=== PATIENT | female | born 1930 | race Caucasian/White ===

== ENCOUNTER 2017-05-03 14:50 | Emergency (ER) | payer MEDICARE, BC ==
[2017-05-03] MEDS ORDERED: Lidocaine 1% (PF) 30 ML VIAL ONE (15:33)
[2017-05-03] MEDS ORDERED: Adacel (T-DAP) 0.5 ML VIAL ONE (15:33)
[2017-05-03] MEDS ORDERED: HYDROcodone/Acetaminophen 10/325 mg Tablet ONE (15:33)
== END 2017-05-03 18:00 | disposition home or self-care (01) ==
LOC: ERS 14:50
DX: S81.811A Laceration without foreign body, right lower leg, initial encounter (principal); I10 Essential (primary) hypertension; W01.0XXA Fall on same level from slipping, tripping and stumbling without subsequent striking against object, initial encounter
CPT/HCPCS: 90471; 90715; J2001

== ENCOUNTER 2017-09-22 19:54 | Inpatient (IN) | payer MEDICARE, BC ==
--- NOTE | 2017-09-22 20:32 | RAD ---
FRONTAL VIEW CHEST 09/22/17 INDICATION: Emergency exam, pain, CHF. FINDINGS: Comparison made to 08/27/10. FINDINGS: The cardiac silhouette is enlarged. There is prominence of pulmonary vasculature. Evidence of prior s ternotomy. Vascular calcification and osseous degenerative changes present. There is slight patchy de nsity at each lung base with a pleural based appearance at the inferior right chest. IMPRESSION: 1. Findings indicate CHF. 2. Pleural based density at the inferior right hemithorax could relate to pleural based irregula rity or minimal pleural fluid. POS: [facility]
[2017-09-22 20:35] LABS: #Eosinphils 0.5 thou/uL (0.0-0.7); #Lymphocytes 1.1 thou/uL (1.20-3.40); #Monocytes 0.8 thou/uL (0.11-0.59); #Neutrophils 3.3 thou/uL (1.40-6.50); %Basophils 0.2 % (0.0-1.0); %Eosinophils 8.4 % (0.0-10.0); %Lymphocytes 19.3 % (21.0-51.0); %Monocytes 14.6 % (0.0-10.0); %Neutrophils 57.6 % (42.0-75.0); Hemoglobin 8.6 g/dL (12.0-16.0); Mean Corpuscular HGB CONC 32.1 g/dL (32.0-36.0); Mean Corpuscular Hemoglobin 27.6 pg (27.0-31.0); Mean Corpuscular Volume 85.9 fl (81.0-99.0); Mean Platelet Volume 8.5 fL (7.4-10.4); Platelet Count 259 thou/uL (130-400); RBC Distribution Width 18.8 % (11.5-14.5); Red Blood Cell (RBC) Count 3.12 mill/uL (4.20-5.40); White Blood Cell (WBC) Count 5.8 thou/uL (4.8-10.8)
[2017-09-22 20:46] LABS: PTT 39.8 SEC (22.9-36.1); Prothrombin Time 13.6 SEC (12.0-14.7)
[2017-09-22 20:59] LABS: ALT (SGPT) 14 U/L (8-55); AST (SGOT) 16 U/L (5-34); Albumin 3.5 g/dL (3.4-4.8); Alkaline Phosphatase 124 U/L (40-150); Anion Gap 11 mmol/L (10-20); BUN (Urea Nitrogen) 25 mg/dL (9.8-20.1); Bilirubin, Total 0.6 mg/dL (0.2-1.2); CK (CPK) 9 U/L (29-168); Calc. Creatinine Clearance 0 mL/min (70-130); Calcium 9.7 mg/dL (7.8-10.44); Carbon Dioxide 24 mmol/L (23-31); Chloride 106 mmol/L (98-107); Estimated GFR-MDRD 37; Globulin 3.3 g/dL (2.4-3.5); Glucose 96 mg/dL (83-110); Protein, Total 6.8 g/dL (6.0-8.3); Sodium 137 mmol/L (136-145)
[2017-09-22 21:00] LABS: CKMB 0.7 ng/mL (0-6.6); Troponin I 0.017 ng/mL (< 0.028)
[2017-09-22 22:13] LABS: Bilirubin Negative (Negative); Blood, Urine Negative (Negative); Clarity CLEAR (Clear); Glucose, Urine (Dipstick) Negative (Negative); Leukocyte Trace (Negative); Nitrite Positive (Negative); Protein, Urine (Dipstick) Negative (Neg-Trace); Specific Gravity, Urine 1.013 (1.002-1.036); Urobilinogen 0.2 mg/dL (0.2-1.0)
[2017-09-22 22:16] LABS: Bacteria/HPF 4+ HPF (None Seen); Hyaline Casts/LPF 0-3 HYALINE CAST LPF (0-3 Hyaline); RBC/HPF 0-3 HPF (0-3); Squamous Epithelial 0-3 HPF (0-3)
[2017-09-22] MEDS ORDERED: Furosemide 40 MG/4 ML VIAL ONE (22:58)
[2017-09-22] MEDS ORDERED: Ondansetron ODT 4 MG TAB SL PRN (23:46)
[2017-09-22] MEDS ORDERED: Ondansetron HCl/PF 4 MG/2 ML Vial IVP PRN (23:46)
[2017-09-23 01:00] LABS: Troponin I 0.016 ng/mL (< 0.028)
[2017-09-23 02:24] VITALS: BMI 29.9
[2017-09-23 04:46] LABS: Troponin I 0.012 ng/mL (< 0.028)
[2017-09-23] MEDS ORDERED: Acetaminophen 650 MG Suppository PR PRN ×2 (08:45→15:55)
[2017-09-23] MEDS ORDERED: Bisacodyl 5 MG TAB PO PRN ×2 (08:45→15:55)
[2017-09-23] MEDS ORDERED: Acetaminophen 325 MG TAB PO PRN ×2 (08:45→15:55)
[2017-09-23] MEDS ORDERED: Non-Formulary Item 1 EACH (Albuterol Sulfate Hfa (Or) 2 PUFF) INH PRN (08:47)
[2017-09-23] MEDS ORDERED: Benzonatate 100 MG CAP PO PRN ×2 (08:47→15:56)
[2017-09-23] MEDS ORDERED: PROVENTIL INHALER 6.7 G (200 INHALATIONS) INH PRN ×2 (08:59→15:59)
[2017-09-23] MEDS ORDERED: Aspirin 325 MG TAB PO SCH (09:00)
[2017-09-23] MEDS ORDERED: Spiriva 18 MCG CAP (Box of 5 Caps) INH SCH (09:00)
[2017-09-23] MEDS ORDERED: Potassium Chloride 20 MEQ TAB PO SCH (09:00)
[2017-09-23] MEDS ORDERED: Nitrofurantoin Monohyd/M-Cryst 100 MG CAP PO SCH (09:00)
[2017-09-23] MEDS ORDERED: Dronedarone HCl 400 MG TAB PO SCH (09:00)
[2017-09-23] MEDS ORDERED: Non-Formulary Item 1 EACH (Cholecalciferol (Vitamin D3) [Vitamin D3] 2,000 UNIT) PO SCH (09:00)
[2017-09-23] MEDS ORDERED: Furosemide 40 MG TAB PO SCH (09:00)
[2017-09-23] MEDS ORDERED: Azelastine 137 MCG/Spray 30 ML NS SCH ×2 (09:00)
[2017-09-23] MEDS ORDERED: Aspirin 81 mg Enteric Coated Tablet PO SCH (09:00)
[2017-09-23] MEDS ORDERED: Levothyroxine Sodium 25 MCG TAB PO SCH (09:00)
[2017-09-23] MEDS ORDERED: Ipratropium Bromide 2.5 ml Neb NEB PRN ×2 (09:03→15:59)
[2017-09-23] MEDS ORDERED: Furosemide 40 MG/4 ML VIAL SLOW IVP SCH ×2 (09:30→14:00)
[2017-09-23] MEDS: Heparin 5,000 UNITS/ML VIAL SC SCH ×3 (09:41→20:42)
--- NOTE | 2017-09-23 14:00 | HP ---
PRIMARY CARE PHYSICIAN: Zachariah Lemus M.D. CHIEF COMPLAINT: Shortness of breath. HISTORY OF PRESENT ILLNESS: Ms. Leal is a pleasant 87-year-old lady who was seen [facility] on 09/23/2017. Most of her care is at [facility]. She presented at this facility today because she wa s transferred from [facility] where she was being managed for a stroke from 08/2017. She reports that over the last 3 or 4 days, she has had bilateral leg swelling. She reports that it worsened over the last couple of days. She also reports that she has orthopnea. She reports shortne ss of breath over the last 2 days. In the past, she was on Lasix 40 mg daily. The dose was decrease d to 20 mg daily about 4-5 days ago because her blood pressures were running low. She denies any chest pain. She denies any cough, fever, or chills. She denies any nausea or vomitin g. REVIEW OF SYSTEMS: The following complete review of systems was negative, unless otherwise mentioned in the HPI or below: Constitutional: Weight loss or gain, ability to conduct usual activities. Sk in: Rash, itching. Eyes: Double vision, pain. ENT/Mouth: Nose bleeding, neck stiffness, pain, te nderness. Cardiovascular: Palpitations, dyspnea on exertion, orthopnea. Respiratory: Shortness of breath, wheezing, cough, hemoptysis, fever or night sweats. Gastrointestinal: Poor appetite, abdom inal pain, heartburn, nausea, vomiting, constipation, or diarrhea. Genitourinary: Urgency, frequenc y, dysuria, nocturia. Musculoskeletal: Pain, swelling. Neurologic/Psychiatric: Anxiety, depressio n. Allergy/Immunologic: Skin rash, bleeding tendency. PAST MEDICAL HISTORY: Significant for non-rheumatic aortic valve stenosis, coronary artery disease, paroxysmal atrial fibrillation, hypertension, hypothyroidism, chronic kidney disease, osteoporosis, a sthma, bunion, chronic diastolic heart failure, colon cancer, dyslipidemia, hypertension, hypothyroid ism, monoclonal gammopathy of undetermined significance, osteoarthritis, and osteoporosis. PAST SURGICAL HISTORY: Significant for resection for colon cancer, coronary artery bypass graft, hys terectomy and cardiac catheterization. FAMILY HISTORY: She reports that her father of heart disease. She also has three sisters who n eeded open heart surgery, one of whom during the surgery. CODE STATUS: I discussed her code status. She is DNR. SOCIAL HISTORY: The patient denies tobacco use, alcohol use or recreational drug use. ALLERGIES: PENICILLIN, AMOXICILLIN, CLAVULANIC ACID, GATIFLOXACIN, SULFAMETHOXAZOLE and TRIMETHOPRIM . CURRENT MEDICATIONS: Include Proventil 2 puffs every 6 hours as needed, aspirin 81 mg daily, atorvas tatin 80 mg at bedtime, azelastine 2 puffs daily, benzonatate 100 mg 3 times a day, vitamin D3 2000 u nits daily, Multaq 200 mg 2 times a day, furosemide 20 mg daily, isosorbide mononitrate 30 mg 2 times a day, levothyroxine 25 mcg daily, mometasone/formoterol 2 puffs 2 times a day, montelukast 10 mg at bedtime, pantoprazole 40 mg daily, potassium chloride 20 mEq daily, and Spiriva 18 mcg inhalation da gill. PHYSICAL EXAMINATION: GENERAL: Ms. Leal is awake and alert, not in acute distress. VITAL SIGNS: She is afebrile. Pulse is 56. She is breathing at rate of 16 and saturating 95% on ro om air. Blood pressure is 132/73. EYES: No scleral icterus. No conjunctival pallor. ENT: Moist mucosal membranes, no oropharyngeal erythema or exudates. NECK: Supple, nontender, normal range of movement. Trachea is midline. She has jugular venous dist ention. RESPIRATORY: Accessory muscles of breathing are not active. Chest wall movements are symmetric bila terally. Lung examination reveals a few bibasilar crackles. CARDIOVASCULAR: S1 and S2 are heard, bradycardic and regular. LUNGS: Peripheral pulses are palpable. No carotid bruit, no pericardial rub. ABDOMEN: Soft, nontender, bowel sounds heard, no hepatomegaly, no splenomegaly. NEUROLOGIC: Cranial nerves II-XII are intact. Deep tendon reflexes are 2+. SKIN: She has bilateral lower extremity edema. She also has an open wound over the left etienne, which she reports as the site of a blister which burst recently. LYMPHATIC: No cervical lymphadenopathy. MUSCULOSKELETAL: Power is 5/5 in all 4 extremities. PSYCHIATRIC: Normal mood, normal affect, patient is oriented to person, place, and time. LABORATORY DATA: Ms. Leal's labs and investigations were reviewed. I reviewed her electrocardio gram, which shows sinus bradycardia with first-degree AV block, no ST changes to suggest an acute cor onary syndrome. I also reviewed her chest x-ray, which does not show any pulmonary infiltrates. She does have prominence of pulmonary vessels. She has a normal white count, normocytic anemia with hem oglobin 8.6, normal platelet count, INR 1.0, normal electrolytes, elevated creatinine of 1.35, last k nown creatinine of 1.37 on 09/04/2017, elevated blood urea nitrogen of 25, unremarkable liver profile , normal troponin I x3, normal lipase and elevated BNP of 828.7. Urinalysis is positive for nitrite and trace leukocyte esterase. ASSESSMENT AND PLAN: Ms. Leal is a pleasant 87-year-old lady who was seen at [facility] on 09/23/2017. Her problem list includes: 1. Shortness of breath: Most likely secondary to congestive heart failure exacerbation. She will b e admitted to the hospital for further management. 2. Congestive heart failure exacerbation: We will treat her with intravenous diuretics. We will ch margarita 2D echocardiogram to evaluate cardiac function. I will also monitor creatinine and electrolytes and she will be on intravenous diuretics. 3. Chronic kidney disease: Stable, recheck creatinine levels since she will be on intravenous diure tics. 4. Atrial fibrillation. Patient is currently in sinus bradycardia. Continue to monitor on telemetr y. 5. Urinary tract infection. Given her history of allergies, start Macrobid. Follow urine cultures. 6. Coronary artery disease. Appears to be stable. 7. History of cerebrovascular accident: Stable. Many thanks for allowing me to participate in Ms. Leal's care. Please feel free to contact me wi th any questions or concerns. LEVEL OF RISK: High. LEVEL OF COMPLEXITY: High.
[2017-09-23] MEDS ORDERED: Furosemide 40 MG/4 ML VIAL ONE (15:17)
[2017-09-23] MEDS ORDERED: Mometasone/Formoterol 120 PUFF INHALER INH SCH (18:30)
[2017-09-23] MEDS: Mometasone/Formoterol 120 PUFF INHALER INH SCH (19:23)
[2017-09-23] MEDS: Nitrofurantoin Monohyd/M-Cryst 100 MG CAP PO SCH (20:28)
[2017-09-23] MEDS: Dronedarone HCl 400 MG TAB PO SCH (20:43)
[2017-09-23] MEDS ORDERED: Montelukast Sodium 10 mg Tablet PO SCH ×2 (21:00)
[2017-09-23] MEDS ORDERED: Atorvastatin Calcium 20 MG TAB PO SCH (21:00)
[2017-09-23] MEDS ORDERED: Atorvastatin Calcium 40 MG TAB PO SCH ×2 (21:00)
[2017-09-24] MEDS: Furosemide 40 MG/4 ML VIAL SLOW IVP SCH ×2 (05:41→13:47)
[2017-09-24] MEDS ORDERED: Levothyroxine Sodium 25 MCG TAB PO SCH (06:00)
[2017-09-24 08:47] LABS: #Eosinphils 0.4 thou/uL (0.0-0.7); #Lymphocytes 0.9 thou/uL (1.20-3.40); #Monocytes 0.6 thou/uL (0.11-0.59); #Neutrophils 2.6 thou/uL (1.40-6.50); %Basophils 0.3 % (0.0-1.0); %Eosinophils 9.1 % (0.0-10.0); %Lymphocytes 19.4 % (21.0-51.0); %Neutrophils 58.1 % (42.0-75.0); Mean Corpuscular HGB CONC 31.7 g/dL (32.0-36.0); Mean Corpuscular Hemoglobin 27.3 pg (27.0-31.0); Mean Corpuscular Volume 86.1 fl (81.0-99.0); Mean Platelet Volume 8.6 fL (7.4-10.4); Platelet Count 311 thou/uL (130-400); RBC Distribution Width 18.7 % (11.5-14.5); Red Blood Cell (RBC) Count 3.64 mill/uL (4.20-5.40); White Blood Cell (WBC) Count 4.5 thou/uL (4.8-10.8)
[2017-09-24] MEDS ORDERED: Potassium Chloride 20 MEQ TAB PO SCH ×2 (09:00→10:45)
[2017-09-24] MEDS ORDERED: Aspirin 81 mg Enteric Coated Tablet PO SCH (09:00)
[2017-09-24] MEDS ORDERED: Azelastine 137 MCG/Spray 30 ML NS SCH (09:00)
[2017-09-24 09:04] LABS: Anion Gap 11 mmol/L (10-20); BUN (Urea Nitrogen) 20 mg/dL (9.8-20.1); Calc. Creatinine Clearance 42 mL/min (70-130); Carbon Dioxide 30 mmol/L (23-31); Chloride 100 mmol/L (98-107); Estimated GFR-MDRD 50; Glucose 85 mg/dL (83-110); Potassium 3.4 mmol/L (3.5-5.1); Sodium 138 mmol/L (136-145)
[2017-09-24] MEDS: Dronedarone HCl 400 MG TAB PO SCH (09:09)
[2017-09-24] MEDS: Mometasone/Formoterol 120 PUFF INHALER INH SCH (09:09)
[2017-09-24] MEDS: Heparin 5,000 UNITS/ML VIAL SC SCH ×2 (09:09→15:24)
[2017-09-24] MEDS: Nitrofurantoin Monohyd/M-Cryst 100 MG CAP PO SCH (09:11)
[2017-09-24 11:18] VITALS: TEMP 98
--- NOTE | 2017-09-24 12:33 | DIS ---
DATE OF ADMISSION: 09/23/2017 DATE OF DISCHARGE: 09/24/2017 PRIMARY CARE PHYSICIAN: Zachariah Lemus M.D. DISCHARGE DIAGNOSES: 1. Congestive heart failure exacerbation. 2. Urinary tract infection. CONDITION OF PATIENT ON THE DAY OF DISCHARGE: Stable. I assessed Ms. Leal on the day of discharge. She denies any chest pain or shortness of breath. She reports feeling better. PHYSICAL EXAMINATION: VITAL SIGNS: Stable. She is saturating well on room air. CARDIOVASCULAR: S1 and S2 are heard, regular. LUNGS: Clear to auscultation bilaterally. DISCHARGE MEDICATIONS: Her furosemide dose is increased to 40 mg daily. Otherwise, no change was made to her home medications as dictated on history and physical note from 09/23/2017. She has also been started on Macrobid 100 mg 2 times a day for 1 week. HOSPITAL COURSE: Ms. Leal is a pleasant 87-year-old lady who was admitted to [facility] on 09/23/2017 for congestive heart failure exacerbation. She also had urinalysis that was suggestive of urinary tract infection. She has been started on Macrobid. She received intravenous furosemide, with marked improvement in her shortness of breath and oxygenation. Preliminary urine cultures indicated that she is growing gram negative rods. She also had a 2D echocardiogram done during this hospitalization. Report is pending at the time of dictation. She is advised to follow up with her primary care physician for final urine culture result as well as 2D echocardiogram report. Her Lasix dose is being increased to 40 mg daily at the time of discharge. On the day of discharge, she has normal sodium, potassium 3.4, which is being replaced, creatinine 1.05, white count 4500, hemoglobin 10 and platelet count 311,000. Many thanks for allowing me to participate in your patient's care. She was admitted to this facility from assisted living at [facility] and is being discharged back to [facility]. TOTAL AMOUNT OF TIME SPENT COORDINATING THIS DISCHARGE: 38 minutes. ARUNA
[2017-09-24 16:12] VITALS: BP 120/59
--- NOTE | 2017-09-30 17:46 | EKG ---
Test Reason : Blood Pressure : / mmHG Vent. Rate : 058 BPM Atrial Rate : 058 BPM P-R Int : 210 ms QRS Dur : 096 ms QT Int : 480 ms P-R-T Axes : 057 -17 005 degrees QTc Int : 471 ms Sinus bradycardia with 1st degree A-V block Otherwise normal ECG Confirmed by NOLAN MONTELONGO, GITA ([id number]), development editor ELIZABETH SIMONS ([id number]) on 09/30/2017 5:45:55 PM Referred By: Confirmed By:GITA FRANCISCO MD
== END 2017-09-24 16:13 | DRG 291 ==
LOC: ERS 19:54 → 2NO 21:42 → UNDODISIN 09-23 13:46
PROVIDERS: ADMIT Internal Medicine Infectious Disease; ATTEND Internal Medicine Infectious Disease
DX: I13.0 Hypertensive heart and chronic kidney disease with heart failure and stage 1 through stage 4 chronic kidney disease, or unspecified chronic kidney disease (principal); I50.33 Acute on chronic diastolic (congestive) heart failure; I48.0 Paroxysmal atrial fibrillation; I35.0 Nonrheumatic aortic (valve) stenosis; D47.2 Monoclonal gammopathy; N39.0 Urinary tract infection, site not specified; N18.9 Chronic kidney disease, unspecified; R00.1 Bradycardia, unspecified; I25.10 Atherosclerotic heart disease of native coronary artery without angina pectoris; E03.9 Hypothyroidism, unspecified; M81.0 Age-related osteoporosis without current pathological fracture; E78.5 Hyperlipidemia, unspecified; Z66 Do not resuscitate; Z86.73 Personal history of transient ischemic attack (TIA), and cerebral infarction without residual deficits; Z85.038 Personal history of other malignant neoplasm of large intestine; Z88.1 Allergy status to other antibiotic agents; Z88.0 Allergy status to penicillin; Z88.2 Allergy status to sulfonamides; Z79.82 Long term (current) use of aspirin; Z79.899 Other long term (current) drug therapy; Z95.1 Presence of aortocoronary bypass graft; Z90.49 Acquired absence of other specified parts of digestive tract
CPT/HCPCS: 36415; 71045; 80048; 80053; 81003; 81015; 82553; 83690; 83880; 84484; 85025; 85610; 85730; 87077; 87086; 87186; 93005; 93306; 93798; 94664; 96374; A4216; J1644; J1940

== ENCOUNTER 2017-09-24 17:06 | Emergency (ER) | payer MEDICARE, BC | END 2017-09-24 18:00 | disposition home or self-care (01) | LOC: ERS 17:06 | DX: S81.811A Laceration without foreign body, right lower leg, initial encounter (principal); I11.0 Hypertensive heart disease with heart failure; I50.9 Heart failure, unspecified; Z79.82 Long term (current) use of aspirin; Z79.899 Other long term (current) drug therapy; W23.1XXA Caught, crushed, jammed, or pinched between stationary objects, initial encounter | CPT/HCPCS: 99283 ==

== ENCOUNTER 2017-11-06 08:49 | Outpatient (CLI) | payer MEDICARE, BC ==
--- NOTE | 2017-11-06 11:10 | HP ---
DATE OF SERVICE: 11/06/2017 HISTORY OF PRESENT ILLNESS: Ms. Nina Leal is a very pleasant 87-year- old who presents to the [facility] for evaluation of venous ulcerations of the right and left lower legs. The patient has a venous ulceration of the right lower leg as well as a venous ulceration of the left lower leg. The patient states that the venous ulceration of her right lower leg began from trauma from a car door after her discharge from [facility] on 09/24/2017 after admission for congestive heart failure exacerbation. The patient states that the ulceration of her left lower leg has been present longer than the ulceration of her right lower leg and began after trauma from her wheelchair. The patient was referred to the Wound Center by Dr. Lemus. Ms. Leal has no other complaints today. She denies any fever or chills. PAST MEDICAL HISTORY: 1. Asthma. 2. Coronary artery disease. 3. Hypertension. 4. Osteoporosis. 5. Peripheral vascular disease. 6. History of paroxysmal atrial fibrillation. 7. Hypothyroidism. 8. Osteoarthritis. 9. Anemia 10. Congestive heart failure with diastolic dysfunction. 11. History of colon carcinoma. 12. Left acute ischemic stroke. 13. Aortic stenosis. PAST SURGICAL HISTORY: 1. Coronary artery bypass grafting. 2. Laparoscopic cholecystectomy. 3. Hysterectomy. 4. Pubovaginal sling. 5. Sinus surgery. 6. Cataract surgery. 7. Right hemicolectomy. 8. Incisional herniorrhaphy with mesh. MEDICATIONS: 1. Iron. 2. Lasix. 3. Potassium. 4. Multaq. 5. Azelastine - fluticasone nasal spray. 6. Vitamin D. 7. Spiriva. 8. Protonix. 9. Aspirin 81 mg. 10. Levothyroxine. 11. Montelukast. 12. Isosorbide dinitrate. 13. Atorvastatin. 14. Dulera aerosol. 15. Albuterol inhaler. 16. ProAir inhaler. ALLERGIES: PENICILLIN and SULFA. SOCIAL HISTORY: Significant for tobacco use of up to 2 packs of cigarettes per day for 20 years. The patient states that she stopped smoking in 1988. The patient denies any history of ETOH use. FAMILY HISTORY: Significant for diabetes mellitus. The patient states that 2 sisters and a cousin were diagnosed with diabetes mellitus. Family history is also significant for coronary artery disease. The patient states that she has 3 sisters who were diagnosed with coronary artery disease. PHYSICAL EXAMINATION: VITAL SIGNS: Temperature 97.5, pulse 68, respirations 17, blood pressure 150/ 67. GENERAL: An 87-year-old female sitting on wheelchair in examination room in no acute distress. HEENT: Normocephalic, atraumatic. NECK: No nuchal rigidity. CHEST: Clear to auscultation. CARDIOVASCULAR: Regular rate and rhythm. ABDOMEN: Soft. EXTREMITIES: An ulceration is present over the right lower leg which measures approximately 0.8 x 1.0 cm. Granulation tissue is present within the wound margins. Necrotic and nonviable tissue present within the wound margins was debrided with an excisional full-thickness debridement with the use of a curette. No purulent drainage is associated with the wound. No erythema of the skin surrounding the wound is present. No maceration of the skin of the periwound is noted. A dorsalis pedis pulse is palpable on the right. No significant edema of the right foot or lower leg is appreciated on exam today. Numerous varicosities are present over the right foot and lower leg. An ulceration of the left lower leg is present which measures approximately 2.4 x 2.2 cm. Granulation tissue is present within the wound margins. Necrotic and nonviable tissue present within the wound margins was debrided with an excisional full-thickness debridement with the use of a curette. No purulent drainage is associated with the wound. No erythema of the skin surrounding the wound is present. No maceration of the skin of the periwound is noted. A dorsalis pedis pulse is palpable on the left. No significant edema of the left foot or lower leg is present on exam today. Numerous varicosities are also present over the left foot and lower leg. ASSESSMENT AND PLAN: 1. Varicose veins with ulcers. Silverlon, Webril, and the 3M Coban 2-layer compression system will be applied to each ulceration today. Orders will be transmitted to Home Health for dressing changes of Silverlon, Webril, and the 3M Coban 2-layer compression system 1-2 times per week after cleansing and irrigation. No antibiotics will be prescribed today based upon the appearance of the wounds. I will see Ms. Leal again in two weeks. 2. Asthma. 3. Coronary artery disease. 4. Hypertension. 5. Osteoporosis. 6. Peripheral vascular disease. 7. History of paroxysmal atrial fibrillation. 8. Hypothyroidism. 9. Osteoarthritis. 10. Anemia 11. Congestive heart failure with diastolic dysfunction. 12. History of colon carcinoma. 13. Left acute ischemic stroke. 14. Aortic stenosis. MTDD
[2017-11-06] MEDS ORDERED: Lidocaine 2% Jelly 5 ML TUBE ONE (19:51)
[2017-11-06] MEDS ORDERED: Sodium Chloride 0.9% 15 ML NEB ONE (19:51)
== END 2017-11-06 08:50 | disposition home or self-care (01) ==
LOC: WCC 08:49
PROVIDERS: ATTEND Family Medicine
DX: I83.018 Varicose veins of right lower extremity with ulcer other part of lower leg (principal); I83.028 Varicose veins of left lower extremity with ulcer other part of lower leg; L97.819 Non-pressure chronic ulcer of other part of right lower leg with unspecified severity; L97.829 Non-pressure chronic ulcer of other part of left lower leg with unspecified severity; J45.909 Unspecified asthma, uncomplicated; I25.10 Atherosclerotic heart disease of native coronary artery without angina pectoris; M81.0 Age-related osteoporosis without current pathological fracture; E03.9 Hypothyroidism, unspecified; I11.9 Hypertensive heart disease without heart failure; I50.9 Heart failure, unspecified; D64.9 Anemia, unspecified; I73.9 Peripheral vascular disease, unspecified; M19.90 Unspecified osteoarthritis, unspecified site; I35.0 Nonrheumatic aortic (valve) stenosis; I63.9 Cerebral infarction, unspecified; Z86.79 Personal history of other diseases of the circulatory system
CPT/HCPCS: 11042; 97139; G0463; 99203; A4218

== ENCOUNTER 2017-11-20 09:37 | Outpatient (CLI) | payer MEDICARE, BC ==
--- NOTE | 2017-11-20 11:36 | PRG ---
DATE OF SERVICE: 11/20/2017 HISTORY: Ms. Nina Leal is a very pleasant 87-year-old who presents to the Wound Center for ev aluation of venous ulcerations of the right and left lower legs. The patient has a venous ulceration of the right lower leg as well as a venous ulceration of the left lower leg. The patient previously stated that the venous ulceration of her right lower leg began from trauma from a car door after her discharge from [facility] on 09/24/2017 after admission for congestive heart failure exacerbation. The patient stated that the ulceration of her left lower leg had been present longer than the ulceration of her right lower leg and began after trauma from her wheelchair. The gm chacko was referred to the Wound Center by Dr. Lemus. After being seen in the Wound Center, the ulcerations were treated with the application of Silverlon, Webril, and 3M Coban 2 layer compression system. The patient has been receiving the preceding dressing changes with the assistance of Home [facility] on a weekly basis after cleansing and irrigation. PHYSICAL EXAMINATION: VITAL SIGNS: Temperature 97.4, pulse 74, respirations 19, blood pressure 121/56. EXTREMITIES: An ulceration is present over the right lower leg, an ulceration is also present over t he left lower leg. Necrotic and nonviable tissue present within the margins of each wound was debrid ed with an excisional full-thickness debridement with the use of a curet. No purulent drainage is as sociated with either wound. No erythema of the skin surrounding either wound is present. No macerat ion of the skin of the periwound of either wound is noted. A dorsalis pedis pulse is easily palpable on the right and on the left. No significant edema of the right or left lower extremity is present on exam today. Numerous varicosities are present over the right and left lower legs. ASSESSMENT AND PLAN: 1. Varicose veins with ulcers. Silverlon, Webril, and the 3M Coban 2-layer compression system will be applied to each ulceration today. Orders will be transmitted to Home Health for dressing changes of Silverlon, Webril, and 3M Coban 2 layer compression system 1-2 times per week after cleansing and irrigation. Once the patient receives her compression garments she is to apply the garments each mor rodo and remove the garments at night. The patient has been told that at this time the compression w raps will be discontinued. The patient understands and is in agreement with the preceding treatment plan. Ms. Leal will be discharged from clinic today with followup on a p.r.n. basis. The wounds have almost healed completely, and are healing without complications or any signs of infection. 2. Asthma. 3. Coronary artery disease. 4. Hypertension. 5. Osteoporosis. 6. Peripheral vascular disease. 7. History of paroxysmal atrial fibrillation. 8. Hypothyroidism. 9. Osteoarthritis. 10. Anemia. 11. Congestive heart failure with diastolic dysfunction. 12. History of colon carcinoma. 13. Left acute ischemic stroke. 14. Aortic stenosis.
[2017-11-20] MEDS ORDERED: Lidocaine 2% Jelly 5 ML TUBE ONE (14:55)
[2017-11-20] MEDS ORDERED: Sodium Chloride 0.9% 15 ML NEB ONE (14:55)
== END 2017-11-20 09:38 | disposition home or self-care (01) ==
LOC: WCC 09:37
PROVIDERS: ATTEND Family Medicine
DX: I83.029 Varicose veins of left lower extremity with ulcer of unspecified site (principal); L97.929 Non-pressure chronic ulcer of unspecified part of left lower leg with unspecified severity; J45.909 Unspecified asthma, uncomplicated; I25.10 Atherosclerotic heart disease of native coronary artery without angina pectoris; M81.0 Age-related osteoporosis without current pathological fracture; E03.9 Hypothyroidism, unspecified; D64.9 Anemia, unspecified; I11.0 Hypertensive heart disease with heart failure; I50.9 Heart failure, unspecified; I35.0 Nonrheumatic aortic (valve) stenosis; I48.0 Paroxysmal atrial fibrillation; I73.9 Peripheral vascular disease, unspecified; M19.90 Unspecified osteoarthritis, unspecified site; I63.9 Cerebral infarction, unspecified
CPT/HCPCS: A4218

== ENCOUNTER 2020-02-20 17:39 | Inpatient (IN) | payer MEDICARE, BC, OTHER ==
[~2020-02-20 17:39] MED LIST: Iopamidol-370 76% 500 ML 1 ML ONE
[2020-02-20] MEDS ORDERED: Fentanyl 100 MCG/2 ML VIAL ONE (18:37)
--- NOTE | 2020-02-20 18:37 | RAD ---
EXAM: CHEST ONE VIEW: 02/20/20 HISTORY: Injury from a fall. Right hip pain. COMPARISON: 09/22/17. FINDINGS: Postop midline sternotomy. Minimal cardiomegaly. Evidence for a large hiatal hernia. Diffuse bony dem ineralization. No confluent pneumonia, overt edema, or pleural effusion. No pneumothorax. IMPRESSION: 1. Minimal stable cardiomegaly with postop midline sternotomy. 2. Large hiatal hernia. 3. Bone demineralization. 4. No evidence for other acute process. POS: [facility]
[2020-02-20] MEDS ORDERED: Adacel (T-DAP) 0.5 ML SYRINGE ONE (18:38)
--- NOTE | 2020-02-20 18:41 | RAD ---
EXAM: RIGHT HAND TWO VIEWS: 02/20/20 HISTORY: Injury from a fall with deformity. Very markedly comminuted distal radial fracture with severe foreshortening and overriding with slight dorsal angulation. There is prominent soft tissue swelling. Prominent vascular calcifications. The r emainder of the hand and wrist appear intact. IMPRESSION: Very markedly comminuted distal radial fracture with intra-articular extension with considerable fore shortening and mild dorsal angulation with some resultant deformity. POS: [facility]
--- NOTE | 2020-02-20 18:46 | RAD ---
AP PELVIS: 02/20/20 HISTORY: Fall with injury to right hip. There is evidence of a displaced fracture involving the superior ramus on the right. This is not well imaged. Degenerative changes at both hips. No acute hip fracture identified. No other plaques are identified. IMPRESSION: Evidence of superior ramus fracture on the right. Consider CT scan pelvis to better evaluate the bony pelvis. POS: [facility]
--- NOTE | 2020-02-20 18:48 | RAD ---
EXAM: RIGHT HIP TWO VIEWS: 02/20/20 HISTORY: Injury and pain from a fall. Very severe bone demineralization. Displaced fractures involving the right superior pubic ramus at th e pubis and inferior ischiopubic ramus. The hip and femur appear intact. IMPRESSION: Displaced fractures of the right superior and inferior pubic rami. POS: [facility]
--- NOTE | 2020-02-20 18:49 | RAD ---
RIGHT FOREARM: 02/20/20 Two views. HISTORY: Fall. There is a displaced impacted fracture of the distal radius. Dorsal displacement of the distal fragme nt. No definite ulnar fracture identified. IMPRESSION: Impacted and displaced fracture distal radius. POS: [facility]
[2020-02-20 19:05] LABS: #Eosinphils 0.6 thou/uL (0.0-0.7); #Monocytes 0.3 thou/uL (0.11-0.59); #Neutrophils 5.5 thou/uL (1.40-6.50); %Basophils 0.5 % (0.0-1.0); %Eosinophils 8.1 % (0.0-10.0); %Lymphocytes 13.3 % (21.0-51.0); %Monocytes 3.4 % (0.0-10.0); %Neutrophils 74.7 % (42.0-75.0); Hemoglobin 10.8 g/dL (12.0-16.0); Mean Corpuscular HGB CONC 33.2 g/dL (32.0-36.0); Mean Corpuscular Volume 87.4 fL (78.0-98.0); Mean Platelet Volume 10.3 fL (7.4-10.4); Platelet Count 96 thou/uL (130-400); RBC Distribution Width 18.1 % (11.5-14.5); Red Blood Cell (RBC) Count 3.73 mill/uL (4.20-5.40); White Blood Cell (WBC) Count 7.4 thou/uL (4.8-10.8)
[2020-02-20 19:10] LABS: INR-International Normal Ratio 1.1; PTT 47.1 sec (22.9-36.1); Prothrombin Time 14.2 sec (12.0-14.7)
[2020-02-20 19:25] LABS: ALT (SGPT) 31 U/L (8-55); AST (SGOT) 39 U/L (5-34); Albumin 3.4 g/dL (3.4-4.8); Alkaline Phosphatase 161 U/L (40-110); Anion Gap 14 mmol/L (10-20); BUN (Urea Nitrogen) 29 mg/dL (9.8-20.1); Bilirubin, Total 0.7 mg/dL (0.2-1.2); Calc. Creatinine Clearance 0 mL/min (70-130); Calcium 9.6 mg/dL (7.8-10.44); Carbon Dioxide 21 mmol/L (23-31); Chloride 106 mmol/L (98-107); Estimated GFR-MDRD 53; Globulin 3.1 g/dL (2.4-3.5); Glucose 127 mg/dL (83-110); Potassium 3.7 mmol/L (3.5-5.1); Protein, Total 6.5 g/dL (6.0-8.3); Sodium 137 mmol/L (136-145)
[2020-02-20 19:46] LABS: CKMB 2.2 ng/mL (0-6.6)
[2020-02-20] MEDS ORDERED: Clindamycin/D5W 600 mg/50 ml Premix Bag ONE (20:06)
[2020-02-20] MEDS ORDERED: Ketorolac Tromethamine 30 MG/ML VIAL ONE (20:06)
[2020-02-20] MEDS ORDERED: Bacitracin 1 PK ONE (20:06)
[2020-02-20 21:01] LABS: Bilirubin Negative (Negative); Blood, Urine Negative (Negative); Clarity Clear (Clear); Glucose, Urine (Dipstick) Normal (Negative); Ketone, Urine Negative (Negative); Leukocyte Negative Leu/uL (Negative); Nitrite Negative (Negative); Protein, Urine (Dipstick) Negative (Neg-Trace); Specific Gravity, Urine 1.007 (1.002-1.036); Urobilinogen Normal mg/dL (Less than 2)
[2020-02-20] MEDS ORDERED: Morphine 2 MG/ML SYRINGE ONE (21:35)
[2020-02-20] MEDS ORDERED: Dextrose 5% in Water 1,000 ML IV PRN (21:37)
[2020-02-20] MEDS ORDERED: hydrALAZINE 20 MG/ML VIAL SLOW IVP PRN (21:37)
[2020-02-20] MEDS ORDERED: Albuterol 200 PUFF (6.7GM INHALER) INH PRN (21:37)
[2020-02-20] MEDS ORDERED: Morphine 2 MG/ML VIAL SLOW IVP PRN (21:37)
[2020-02-20] MEDS ORDERED: Dextrose 50% Abboject 50 ML SYRINGE SLOW IVP PRN (21:37)
[2020-02-20] MEDS ORDERED: Cyclobenzaprine 10 MG TAB PO PRN (21:42)
[2020-02-20] MEDS ORDERED: traMADol HCl 50 MG TAB PO PRN ×2 (21:42)
[2020-02-20] MEDS ORDERED: Sodium Chloride 0.9% 1,000 ML IV SCH (22:45)
[2020-02-20 22:48] LABS: Phosphorus 3.3 mg/dL (2.3-4.7)
[2020-02-20 22:50] LABS: Digoxin Less than 0.15 ng/mL (0.8-2.0)
[2020-02-20 22:54] LABS: Troponin I 0.028 ng/mL (< 0.028)
--- NOTE | 2020-02-20 23:03 | HP ---
TRAUMA SURGEON: Dr. Damon. CONSULTING PHYSICIAN: Dr. Campa of Orthopedic Surgery. HISTORY OF PRESENT ILLNESS: The patient is an 89-year-old female who presented to the emergency department via EMS as a level 2 trauma activation. The patient arrived hemodynamically stable and reported that she had a fall from standing by turning down her sheets on her bed. The patient is not exactly sure why she fell. It is unclear if she had a near syncopal episode. She does have a significant cardiac history. She denies chest pain or shortness of breath. She denies any recent cardiac events. She has not used her home nitroglycerin recently. She is lying in bed almost flat and is not requiring any oxygen. She denies cough or shortness of breath. The patient takes aspirin at home. She does not take any anticoagulation. She denies any loss of consciousness or hitting her head. REVIEW OF SYSTEMS: All additional 10-point review of systems negative except as indicated above. PAST MEDICAL HISTORY: Hiatal hernia, CABG, asthma, CAD, hypertension, osteoporosis, peripheral vascular disease, paroxysmal atrial fibrillation, hypothyroidism, osteoarthritis, anemia, congestive heart failure with diastolic dysfunction, colon cancer, left-sided ischemic stroke, aortic stenosis, and GERD. PAST SURGICAL HISTORY: CABG, laparoscopic cholecystectomy, hysterectomy, pubovaginal sling, sinus surgery, cataract surgery, right hemicolectomy, incisional hernia repair with mesh. SOCIAL HISTORY: The patient denies tobacco, drug, and alcohol use. She lives at [facility] in the assisted living portion. She gets around with a walker usually. MEDICATIONS: Include, 1. Dulcolax. 2. Lidocaine patches. 3. Ferrous sulfate. 4. Nitroglycerin tablets. 5. MiraLAX. 6. Dextran eye drops. 7. Tylenol. 8. Zofran. 9. Lasix 40 mg once a day. 10. Multaq. 11. She has an additional Lasix 20 mg p.r.n. 12. Digoxin. 13. Advair. 14. Potassium chloride. 15. Spiriva. 16. Protonix. 17. Aspirin. 18. Levothyroxine. 19. Azelastine-fluticasone. 20. Montelukast sodium. 21. Atorvastatin. 22. Albuterol sulfate. 23. ProAir. ALLERGIES: PENICILLIN, AUGMENTIN, CEFAZOLIN, SULFA, ANTIBIOTICS, TRIMETHOPRIM, AND GATIFLOXACIN. PHYSICAL EXAMINATION: VITAL SIGNS: Heart rate 105, respirations 21, oxygen saturation 95% on room air, blood pressure 112/62. PRIMARY SURVEY: Airway intact. Adequate breath sounds bilaterally. 2+ pulses in the bilateral radials, femorals, and DPs. GCS 15. Gross motor and sensation intact. The patient has a 5 cm avulsion laceration to the distal medial aspect of the right radius. She has bruising to her bilateral tib fibs and left upper extremity, which are of different ages. She has no signs of any active bleeding. SECONDARY SURVEY: HEAD: Normocephalic and atraumatic. No gross palpable skull deformities. EYES: Pupils, 3-2, equal, round, reactive to light bilaterally. ENT: No signs of trauma. C-SPINE: No step-offs or deformities. Nontender. C-collar not in place. CHEST: Nontender. No crepitus. No abrasions or ecchymosis noted. Equal chest movement. ABDOMEN: Soft, nontender, nondistended. PELVIS: Stable to palpation, but tenderness. RECTAL: Deferred. GENITOURINARY: Deferred. EXTREMITIES: No gross traumatic deformities. No abrasions noted. She has ecchymoses on her bilateral tib fibs of different ages. 2+ pulses in bilateral radials, femorals, and DPs. BACK/SPINE: No step-offs or deformities. No signs of trauma. NEUROLOGIC: 5/5 strength in the bilateral lower extremities, 3/5 strength in the right hand cmo, 4/5 strength in the left upper extremity, this is her baseline. Gross motor and sensation x4 extremities. LABORATORY FINDINGS: White count 7.4, hemoglobin 10.8, hematocrit 32.6, platelets 96. INR 1.1, PTT 47.1. Sodium 137, potassium 3.7, chloride 106, bicarb 21, BUN 29, creatinine 0.99, glucose 127, total bilirubin 0.7, AST 39, ALT 31, alkaline phosphatase 161. Troponin 0.049. UA is negative. Digoxin level, BNP, mag and phos are all pending. DIAGNOSTIC FINDINGS: X-ray of the right forearm demonstrates impacted and displaced fracture of the distal radius. X-ray of the right hip demonstrates displaced fracture of the right superior and inferior pubic rami. X-ray of the pelvis demonstrates evidence of superior rami fracture on the right. Consider CT scan of pelvis to better evaluate the bony pelvis. Chest x-ray demonstrates minimal stable cardiomegaly with postop midline sternotomy. Large hiatal hernia. Bone demineralization. No evidence for acute process. X-ray of the right hand demonstrates very markedly comminuted distal radius fracture with intra-articular extension with considerable foreshortening and mild dorsal angulation with resultant deformity. ASSESSMENT: 1. Status post fall from standing, possibly near syncopal episode. 2. Right superior and inferior pubic rami fracture. 3. Right open distal radius fracture. 4. Non-ST elevation myocardial infarction, likely due to demand but underlying etiology not completely sure. 5. History of coronary artery disease, hypertension, peripheral vascular disease, paroxysmal atrial fibrillation, osteoporosis, hiatal hernia, coronary artery bypass grafting, asthma, hypothyroidism, osteoporosis, chronic anemia, congestive heart failure with diastolic dysfunction, colon cancer, left-sided ischemic stroke, aortic stenosis, gastroesophageal reflux disease. PLAN: The patient will be admitted to the Trauma Service. She will go to Telemetry. Repeat troponin at 10 p.m. We will also complete digoxin level, magnesium and phosphorus levels as well. BNP has been already ordered. Bridges to be placed in the emergency department. COVID test for possible OR tomorrow morning with Dr. Campa of Orthopedic Surgery. She will also receive an echo beforehand and be evaluated by Dr. Cannon before going to the OR. This plan has been discussed with Dr. Campa at the bedside who is in agreement. The patient has a significant mid systolic aortic murmur. She does have a history of aortic stenosis and has not had an echo since 2018. There is some concern there was a presyncopal event before her fall. However, it is not completely clear based off the patient's history. The patient is to receive antibiotics in the meantime. This patient will be discussed with Dr. Damon after this dictation. Job ID: [id number]
[2020-02-20 23:13] LABS: Hemoglobin 9.6 g/dL (12.0-16.0); Mean Corpuscular HGB CONC 33.2 g/dL (32.0-36.0); Mean Corpuscular Hemoglobin 28.9 pg (27.0-31.0); Mean Corpuscular Volume 87.3 fL (78.0-98.0); Mean Platelet Volume 7.5 fL (7.4-10.4); Platelet Count 84 thou/uL (130-400); RBC Distribution Width 18.1 % (11.5-14.5); Red Blood Cell (RBC) Count 3.33 mill/uL (4.20-5.40); White Blood Cell (WBC) Count 6.8 thou/uL (4.8-10.8)
[2020-02-20 23:39] LABS: Band 6 % (5-11); Eosinophils 4 % (0-10); Lymphocytes 15 % (21-51); MDiff Complete? YES; Monocytes 2 % (0-10); Neutrophil 72 % (42-75); Platelet Morphology Comment Appears Decreased; Reactive Lymphocytes 1 % (0-10)
[2020-02-21] MEDS ORDERED: Potassium Phosphate 15 MMOL in Sodium Chloride 0.9% 250 ML 250 ML IVPB SCH (00:30)
[2020-02-21] MEDS: Acetaminophen 500 MG TAB PO SCH ×4 (00:59→20:29)
[2020-02-21] MEDS ORDERED: Non-Formulary Item 1 EACH (Albuterol Sulfate [Proair Hfa] 2 PUFF) INH PRN (01:55)
[2020-02-21 04:54] LABS: Troponin I 0.049 ng/mL (< 0.028)
[2020-02-21 04:56] LABS: #Eosinphils 0.4 thou/uL (0.0-0.7); #Lymphocytes 0.7 thou/uL (1.20-3.40); #Monocytes 0.3 thou/uL (0.11-0.59); #Neutrophils 4.1 thou/uL (1.40-6.50); %Basophils 0.8 % (0.0-1.0); %Eosinophils 6.8 % (0.0-10.0); %Lymphocytes 12.8 % (21.0-51.0); %Monocytes 5.3 % (0.0-10.0); %Neutrophils 74.3 % (42.0-75.0); Hemoglobin 9.7 g/dL (12.0-16.0); Mean Corpuscular HGB CONC 31.8 g/dL (32.0-36.0); Mean Corpuscular Hemoglobin 28.1 pg (27.0-31.0); Mean Corpuscular Volume 88.2 fL (78.0-98.0); Mean Platelet Volume 8.5 fL (7.4-10.4); Platelet Count 78 thou/uL (130-400); Platelet Morphology Comment Appears Decreased; RBC Distribution Width 18.2 % (11.5-14.5); Red Blood Cell (RBC) Count 3.45 mill/uL (4.20-5.40); White Blood Cell (WBC) Count 5.5 thou/uL (4.8-10.8)
[2020-02-21 05:00] LABS: Anion Gap 10 mmol/L (10-20); BUN (Urea Nitrogen) 26 mg/dL (9.8-20.1); Calc. Creatinine Clearance 47 mL/min (70-130); Calcium 8.6 mg/dL (7.8-10.44); Carbon Dioxide 22 mmol/L (23-31); Chloride 108 mmol/L (98-107); Estimated GFR-MDRD 69; Glucose 100 mg/dL (83-110); Magnesium 2.1 mg/dL (1.6-2.6); Phosphorus 4.8 mg/dL (2.3-4.7); Potassium 4.1 mmol/L (3.5-5.1); Sodium 136 mmol/L (136-145)
[2020-02-21] MEDS ORDERED: ceFAZolin 1 GM/D5W 1 GM in Premix Bag 1 BAG IVPB SCH (06:00)
[2020-02-21] MEDS: Ibuprofen 200 MG TAB PO SCH ×3 (06:06→21:06)
[2020-02-21] MEDS: Levothyroxine Sodium 25 MCG TAB PO SCH (06:06)
--- NOTE | 2020-02-21 07:25 | CON ---
DATE OF CONSULTATION: 02/20/2020 REQUESTING PHYSICIAN: Yelitza Damon MD BRIEF HISTORY OF PRESENT ILLNESS: The patient is an awake and alert 89-year-old lady who was examined in the emergency room at [facility] following a ground level fall at home. She reports that earlier in the evening, she was standing by her bed when she fell. She does not recall the exact mechanism. Upon arrival at [place], she was found to have an open fracture of her right wrist as well as significant hypotension. Of note, the patient has an extensive cardiac history including a history of coronary artery disease, atrial fibrillation, and by report, critical aortic stenosis. She does have nitroglycerin at home, but has not used it recently. She denies any symptoms currently of cough, chest pain or shortness of breath. With this open fracture, orthopedic consultation requested. PAST MEDICAL HISTORY: Remarkable for aortic stenosis, coronary artery disease, hypertension, atrial fibrillation, peripheral vascular disease, hiatal hernia, osteoporosis, past history of left-sided stroke, and chronic anemia. PAST SURGICAL HISTORY: Includes coronary artery bypass graft, cholecystectomy, hysterectomy, pubovaginal sling, right hemicolectomy, and incisional hernia repair. MEDICATIONS: Include, 1. Dulcolax. 2. Lidoderm patches. 3. Iron sulfate. 4. Nitroglycerin on a p.r.n. basis. 5. MiraLAX. 6. Tylenol. 7. Zofran. 8. Lasix. 9. Digoxin. 10. Potassium replacement. 11. Spiriva. 12. Protonix. 13. Aspirin. 14. Levothyroxine. 15. Atorvastatin. 16. Albuterol. 17. ProAir. ALLERGIES: PENICILLIN, AUGMENTIN, CEFAZOLIN, SULFA, TRIMETHOPRIM. SOCIAL HISTORY: She lives at the [facility] in the assisted living facility. She denies current tobacco, drugs, or alcohol use. She uses a walker for mobility. FAMILY HISTORY: Noncontributory for these fractures. PHYSICAL EXAMINATION: VITAL SIGNS: She is found to have a heart rate of 82, respiratory rate of 30, O2 saturations 97% on room air. She has a temperature of 98 degrees Fahrenheit and a blood pressure of 109/68 at the time of orthopedic evaluation. When orthopedic consultation was requested, her systolic pressure was in the 60s by emergency room physician report. HEENT: Atraumatic and normocephalic. HEART: Remarkable for 4/6 holosystolic murmur. RESPIRATORY: Clear to auscultation bilaterally with shallow breath sounds. Chest wall is nontender. ABDOMEN: Flat, soft, and nontender with well-healed scars. EXTREMITIES: Remarkable for multiple bruises and some minor skin tears of the upper extremities. The right upper extremity further remarkable for a short-arm splint that has been applied. By report of the emergency room physician, she had a laceration overlying the radial styloid with gross deformity. She is found to have intact sensation in the radial, median, and ulnar distributions. She has good capillary refill. Bilateral lower extremities remarkable for bruising, but no gross deformity of thigh, lower leg, foot or ankle. She is wiggling her toes normally. With log-rolling of each thigh, she is found to have some right-sided groin pain. She has pain to palpation of the symphysis pubis, which is felt to the right side of the symphysis pubis. She denies back pain. X-RAYS: X-rays at the time of this assessment include right forearm, right hand, both which show a distal radius fracture with displacement as well as what appears to be osteopenia with a washed out appearance of her bones. Two-view x-ray of the right hip remarkable for superior and inferior rami fractures. AP pelvis x-ray also remarkable for superior and inferior rami fractures with no obvious sacral fracture, but again difficult to interpret given the washed out appearance of the bone. A CT scan of the pelvis and abdomen is scheduled. LABORATORY DATA: The patient is found to have a white count of 7.4, hematocrit of 32.6, and 96,000 platelets. Her INR is 1.1. ASSESSMENT: An 89-year-old lady, status post ground level fall at home sustaining open right distal radius as well as right superior and inferior rami fractures. The patient is still pending abdomen and pelvis CT. PLAN: At this time, the patient is not felt to be stable for surgery given her initial presentation of hypotension. The trauma service will be admitting the patient and they would like to follow her with some sequential troponins. They would also like to obtain an echocardiogram in the morning to more fully assess the degree of critical stenosis of the aortic valve. Pending the outcome of these studies, we will proceed to the operating room for irrigation, debridement, and either ex-fix versus pinning, versus open reduction and internal fixation of the right distal radius. Informed consent will be obtained tomorrow following cardiac workup. Job ID: [id number]
[2020-02-21] MEDS: Albuterol 200 PUFF (6.7GM INHALER) INH SCH ×3 (07:31→21:18)
[2020-02-21] MEDS: Mometasone 100 MCG/Formoterol 5 MCG 120 PUFF INHALER INH SCH ×2 (07:31→21:18)
--- NOTE | 2020-02-21 07:39 | CT ---
PRELIMINARY REPORT/[facility]/EMERGENCY AFTER HOURS PROCEDURE EXAM: CT Abdomen and Pelvis with Intravenous Contrast CLINICAL HISTORY: EMS states that she became somewhat lightheaded, and fell. States that she has a large what appears t o be open wound to the right wrist that was bleeding heavily. She is complaining of right wrist, right shoulder, and right hip pain. No headache, no loss of consciousness, no chest pain or shortness of breath. Patient did have a report of hypotension in the field, but her blood pressure is improved upon arrival to the emergency room. Patient denies abdominal pain at this time TECHNIQUE: Axial computed tomography images of the abdomen and pelvis with intravenous contrast. CONTRAST: With; 70ML ISOVUE 370 COMPARISON: None provided. FINDINGS: LUNG BASES: Small bilateral pleural effusions. Subsegmental airspace disease. Myocardial megaly. The coronarie s are calcified. Calcified mitral annulus. Interlobular septal thickening. Large hiatal hernia. LIVER: The liver is enlarged measuring 20.5 cm in length. GALLBLADDER AND BILE DUCTS: Cholecystectomy clips in the gallbladder fossa. No ductal dilation. PANCREAS: Unremarkable. SPLEEN: Unremarkable. ADRENAL GLANDS: The right adrenal gland is normal. 1.2 cm nodule in the medial limb of the left adrenal gland. KIDNEYS, URETERS, AND BLADDER: 2 cm cyst at the midpole of the left kidney. 7 mm cyst at the midpole of the right kidney. No hydro nephrosis or nephrolithiasis. No ureteral or bladder calculi. A Bridges catheter is in place. The bladder is decompressed. STOMACH AND BOWEL: No obstruction. No wall thickening. No CT evidence of colitis or acute diverticulitis. Colonic diver ticulosis. Her fragility of the colon. Sutures in the right hemicolon. APPENDIX: No CT evidence for appendicitis. PERITONEUM: No free fluid. No free air. LYMPH NODES: No lymphadenopathy. REPRODUCTIVE: The uterus and ovaries are absent. VASCULATURE: No aortic aneurysm. Atherosclerosis. BONES: Mildly comminuted fractures of the right superior and inferior pubic rami. Nondisplaced fracture of the right hemisacrum. Moderate osteoarthritis of the bilateral hips and SI joints. Multilevel mild to moderate degenerative disc disease. Grade 1 anterolisthesis of L5 on S1. ABDOMINAL WALL AND SOFT TISSUES: Unremarkable. IMPRESSION: Comminuted fractures of the right superior and inferior pubic rami. Fracture of the right hemisacrum . Colonic diverticulosis with no evidence of diverticulitis. Hepatomegaly. Nonspecific heterogeneous nodule of the left atrial gland. Follow-up with an adrenal protocol CT or MRI is recommended. Large hiatal hernia. Small bilateral pleural effusions. Bibasilar subsegmental airspace disease. D iffuse interstitial edema. Mild cardiomegaly. Coronary artery disease. ELECTRONICALLY SIGNED BY: Jimbo Rooney MD Feb 21, 2020 12:22:57 AM CDT This report is intended for review by the ordering physician only, in accordance of law. If you recei ve this report in error, please call [facility] at [phone]. FINAL REPORT CT Abdomen Pelvis W Con History: Fall. Hypotension Comparison: None. Findings/Impression: Concordant with the preliminary report. In addition there are nodules in the gabriele g bases for which nonemergent follow-up CT of the chest is recommended after resolution of acute symptomatology. There is also a hypodensity posterior interpolar left renal cortex for which nonemerg ent follow-up renal ultrasound recommended. Transcribed Date/Time: 02/21/2020 8:15 AM
[2020-02-21] MEDS: Gabapentin 100 MG CAP PO SCH ×3 (08:27→21:03)
[2020-02-21] MEDS: Digoxin 0.125 MG TAB PO SCH (08:27)
[2020-02-21] MEDS: Dronedarone HCl 400 MG TAB PO SCH ×2 (08:28→21:05)
[2020-02-21] MEDS: Ferrous Sulfate 325 MG TAB PO SCH ×2 (08:28→21:03)
[2020-02-21] MEDS: Polyethylene Glycol 3350 17 GM Packet PO SCH (08:34)
[2020-02-21] MEDS: Senokot S 8.6-50 MG TAB PO SCH ×2 (08:34→21:03)
[2020-02-21] MEDS ORDERED: Non-Formulary Item 1 EACH (Tiotropium [Spiriva Handihaler] 18 MCG) INH SCH (09:00)
[2020-02-21] MEDS ORDERED: Prevnar 13-Val Conj/PF 0.5 ML SYRINGE IM ONE (09:00)
[2020-02-21] MEDS ORDERED: Famotidine/PF 20 mg/2ml Vial SLOW IVP SCH (09:00)
[2020-02-21] MEDS ORDERED: CEFAZOLIN 2 GM in Premix Bag 1 BAG IVPB SCH ×2 (09:30→14:00)
[2020-02-21] MEDS ORDERED: Zolpidem Tartrate 5 MG TAB PO PRN (10:39)
[2020-02-21] MEDS ORDERED: Ropivacaine 0.2% 550 ML 550 ML NERVE BLCK SCH (10:39)
[2020-02-21] MEDS ORDERED: Ondansetron PF 4 MG/2 ML Vial IVP PRN (10:39)
[2020-02-21] MEDS ORDERED: Promethazine HCl 25 MG/ML VIAL IM PRN (10:39)
[2020-02-21] MEDS ORDERED: HYDROcodone/Acetaminophen 10/325 mg Tablet PO PRN ×2 (10:39)
[2020-02-21] MEDS ORDERED: traMADol HCl 50 MG TAB PO PRN (10:39)
[2020-02-21] MEDS ORDERED: Fentanyl 100 MCG/2 ML VIAL SLOW IVP PRN (10:40)
[2020-02-21] MEDS ORDERED: CEFAZOLIN 1 GM VIAL ONE (11:19)
[2020-02-21] MEDS ORDERED: Bupivacaine HCl 0.5%/Epinephrine 1:200,000/PF 30 ml Vial ONE (11:29)
[2020-02-21] MEDS ORDERED: Ropivacaine 0.5% HCl/PF (150 MG/30 ML VIAL) ONE (11:29)
[2020-02-21] MEDS ORDERED: Ropivacaine 0.2% HCl/PF (40 MG/20 ML VIAL) ONE (11:29)
[2020-02-21] MEDS ORDERED: Hydrocortisone Sod Succ/PF 100 mg/2 ml Vial IVP SCH (11:30)
[2020-02-21] MEDS ORDERED: Hydrocortisone Sod Succ/PF 100 mg/2 ml Vial ONE (11:37)
[2020-02-21] MEDS ORDERED: Ondansetron PF 4 MG/2 ML Vial ONE (11:38)
[2020-02-21] MEDS ORDERED: Ondansetron HCl/PF 4 MG/2 ML Vial IVP PRN (12:22)
[2020-02-21] MEDS ORDERED: Fentanyl 100 MCG/2 ML VIAL ONE (12:34)
[2020-02-21 13:08] LABS: SARS-CoV-2 MS2 Positive; SARS-CoV-2 N Gene Negative; SARS-CoV-2 S Gene Negative; SARS-CoV-2 orf1ab Negative
--- NOTE | 2020-02-21 14:22 | OP ---
DATE OF PROCEDURE: 02/21/2020 OPERATION PERFORMED: 1. Irrigation and debridement of open right radius and ulnar fracture. 2. Open reduction and percutaneous pinning of right open distal radius and ulnar fracture. PREOPERATIVE DIAGNOSIS: Open right distal radial and ulnar fracture. POSTOPERATIVE DIAGNOSIS: Open right distal radial and ulnar fracture. COMPLICATIONS: None. ESTIMATED BLOOD LOSS: Minimal. BLACK JACK DEALER: Leander Andrade PA-C IMPLANTS: Two 0.062 K-wires were utilized. INDICATIONS: Ms. Leal is an 89-year-old female who fell and fractured her right distal radius and ulna. She has been indicated for irrigation and debridement of the open fracture as well as a closed versus open reduction of her fracture. Risks have been reviewed in detail. She has elected to proceed with the operation. DESCRIPTION OF PROCEDURE: Ms. Leal was identified in the preoperative holding area. Her correct extremity was marked. She was carried to the operating room. She was positioned supine. General anesthesia was induced. A multidisciplinary time-out was performed. The right upper extremity was prepped and draped in sterile fashion. We began the procedure by exploring the patient's traumatic ulnar-sided wound. She had a 5-cm wound that had significant skin loss and skin tearing. Her skin was extremely thin. We debrided the wound with a knife as well as curette. We worked down to the ulnar styloid. We thoroughly irrigated with copious lavage. There was no gross contamination. We obtained hemostasis. At this point, we loosely closed a few areas of the skin edges. Most of the wound could not be closed. Next, we manipulated the fracture using traction and rotation of the radius. We took intraoperative x-rays, confirming appropriate alignment. At this point, we passed two 0.062 K-wires from the radial styloid in a divergent pattern across the fracture site itself. This stabilized the fracture. At this point, we took final images. We cut and bent our K-wires. We then had the wound care team applied a wound VAC to the ulnar wound as well as a splint to the radial side of the arm. The patient tolerated this well under regional anesthesia. She was taken back to the recovery room in good condition. Job ID: [id number]
[2020-02-21] MEDS ORDERED: traMADol HCl 50 MG TAB PO SCH (14:45)
--- NOTE | 2020-02-21 16:17 | RAD ---
XR Wrist 3 Rt View STANDARD History: ORIF distal radius Comparison: Radiograph prior day Findings: 2 percutaneous pins are seen traversing the intra-articular distal radius fracture in good position. Impression: Fluoroscopy for surgical purposes.
[2020-02-21] MEDS ORDERED: Acetaminophen 500 MG TAB ONE (17:37)
[2020-02-21] MEDS: Hydrocortisone Sod Succ/PF 100 mg/2 ml Vial IVP SCH (17:40)
[2020-02-21] MEDS: traMADol HCl 50 MG TAB PO SCH (17:40)
--- NOTE | 2020-02-21 18:41 | PRG ---
DATE OF SERVICE: 02/21/2020 SUBJECTIVE: The patient was seen on the telemetry floor during morning rounds, awake and alert, in no distress. The patient reports that her pain is well controlled and she had no overnight events. The patient was initially hypotensive when she arrived to the emergency room, but blood pressures have improved overnight. The patient has been n.p.o. since midnight with plans to go to the operating room with Dr. Campa for repair of her open right radius fracture. It was reported from the nurse that the patient has an [id number] DNR and wishes to have it read and stated as a hospital DNAR. Conversation with the patient in detail. The patient is alert and oriented to person, place, time, and event. The patient wishes not to have any chest compressions or medications if she was to lose a pulse. The patient is okay being intubated and with respiratory support in the OR and if needed postop. OBJECTIVE: VITAL SIGNS: Temperature 97.6, pulse 99, respirations 18, SpO2 of 96% on room air, and blood pressure 134/80. GENERAL: Well-appearing elderly female, awake and alert, in no distress. HEENT: Head is atraumatic and normocephalic. RESPIRATORY: Equal chest rise and fall. Bilateral breath sounds clear. CARDIAC: Regular rate. Regular rhythm. Systolic murmur. EXTREMITIES: Moves all extremities. Distal pulses intact. Right upper extremity in a splint. NEUROLOGIC: No focal deficits. GCS 15. LABORATORY DATA: WBC 5.5, RBC 3.45, hemoglobin 9.7, hematocrit 30.4, and platelets 78. Sodium 136, potassium 4.1, chloride 108, carbon dioxide 22, BUN 26, creatinine 0.79, estimated GFR 69, glucose 100, calcium 8.6, phosphorus 4.8, and magnesium 2.1. Troponin I 0.049 and BNP 504.1. Cortisol 2.60. COVID-19 PCR not detected. DIAGNOSTICS: There is no new diagnostics to review today. IMPRESSION: 1. Status post fall from standing, possible near syncopal episode. 2. Right superior and inferior pubic rami fracture, nonoperative. 3. Right open distal radius fracture pending repair. 4. Non-ST elevation myocardial infarction, likely due to demand ischemia. 5. Acute adrenal insufficiency. 6. History of coronary artery disease, hypertension, peripheral vascular disease , paroxysmal atrial fibrillation, osteoporosis, hiatal hernia, chronic anemia, congestive heart failure with diastolic dysfunction, colon cancer, left-sided ischemic stroke, aortic stenosis, and gastroesophageal reflux disease. PLAN: We will start the patient on hydrocortisone. We will give 100 mg now and then q.6 hours 25 mg for acute adrenal insufficiency. We will repeat troponin. The patient is going to the OR this morning for repair of her right extremity fracture. We will continue to monitor urinary output. DNAR confirmed. The patient is pending echocardiogram. The plan was discussed with Dr. Cannon. Job ID: [id number] [facility] MEDICAL CENTERMatt
[2020-02-21] MEDS: CEFAZOLIN 2 GM in Premix Bag 1 BAG IVPB SCH ×2 (20:29→20:59)
[2020-02-21] MEDS: Atorvastatin Calcium 40 MG TAB PO SCH (21:02)
[2020-02-21] MEDS: Montelukast Sodium 10 mg Tablet PO SCH (21:05)
[2020-02-22] MEDS: Hydrocortisone Sod Succ/PF 100 mg/2 ml Vial IVP SCH ×4 (00:25→17:16)
[2020-02-22] MEDS: traMADol HCl 50 MG TAB PO SCH (00:26)
[2020-02-22] MEDS: Acetaminophen 500 MG TAB PO SCH ×4 (00:26→17:17)
--- NOTE | 2020-02-22 02:54 | PRG ---
DATE OF SERVICE: 02/21/2020 SUBJECTIVE: The patient was seen this evening during rounds. She had been moved to the IMCU because postoperatively she had an episode of hypotension in the PACU, where she received 1 L of IV fluids. Before this, she received fentanyl and this made her O2 saturation drop minimally. Upon my evaluation, she was sitting up in bed, resting comfortably, and asleep. Nursing reported no issues with oxygen saturation or blood pressure. The patient's lung dia were clear and she appeared to be breathing easily. OBJECTIVE: VITAL SIGNS: Temperature 97.2, pulse 84, respirations 11, oxygen saturation 100% on 2 L nasal cannula, blood pressure 111/66. GENERAL: Well-appearing elderly female, sitting up in bed, asleep with no signs of acute distress. PULMONARY: Equal chest rise and fall. Clear breath sounds bilaterally. No signs of acute respiratory distress. CARDIAC: Regular rate and rhythm with mid systolic aortic murmur. EXTREMITIES: All extremities are warm. Right upper extremity with splint that is clean, dry, and in place. ASSESSMENT: 1. Status post ground-level fall, on aspirin. 2. Right open radius fracture, status post repair. 3. Right superior and inferior pubic rami fracture, stable. 4. Possible near syncopal episode. 5. [id number] myocardial infarction. 6. Acute adrenal insufficiency. 7. History of coronary artery bypass grafting, coronary artery disease, hypertension, peripheral vascular disease, atrial fibrillation, aortic stenosis, congestive heart failure with diastolic dysfunction, left-sided ischemic stroke, hiatal hernia, asthma, hypothyroidism, osteoarthritis, anemia, colon cancer, and gastroesophageal reflux disease. PLAN: Continue to monitor patient overnight in the IMCU for hypotension or hypoxemia. Continue hydrocortisone for acute adrenal insufficiency. We will make her pain medications p.r.n. Continue current regular diet. Continue Bridges catheter and VAC overnight. We will consider discontinuing the Bridges catheter in the morning. Echo is still pending. Job ID: [id number]
[2020-02-22 04:38] LABS: Anion Gap 11 mmol/L (10-20); BUN (Urea Nitrogen) 20 mg/dL (9.8-20.1); Calc. Creatinine Clearance 46 mL/min (70-130); Calcium 8.7 mg/dL (7.8-10.44); Carbon Dioxide 20 mmol/L (23-31); Chloride 107 mmol/L (98-107); Estimated GFR-MDRD 68; Glucose 112 mg/dL (83-110); Magnesium 2.2 mg/dL (1.6-2.6); Phosphorus 4.1 mg/dL (2.3-4.7); Potassium 4.8 mmol/L (3.5-5.1); Sodium 133 mmol/L (136-145)
[2020-02-22] MEDS: Ibuprofen 200 MG TAB PO SCH ×3 (06:25→21:05)
[2020-02-22] MEDS: Levothyroxine Sodium 25 MCG TAB PO SCH (06:25)
[2020-02-22] MEDS: Albuterol 200 PUFF (6.7GM INHALER) INH SCH (06:25)
[2020-02-22] MEDS: Mometasone 100 MCG/Formoterol 5 MCG 120 PUFF INHALER INH SCH ×2 (07:18→18:33)
[2020-02-22] MEDS: Senokot S 8.6-50 MG TAB PO SCH ×2 (10:44→21:05)
[2020-02-22] MEDS: Digoxin 0.125 MG TAB PO SCH (10:44)
[2020-02-22] MEDS: Ferrous Sulfate 325 MG TAB PO SCH ×2 (10:45→21:05)
[2020-02-22] MEDS: Polyethylene Glycol 3350 17 GM Packet PO SCH (10:45)
[2020-02-22] MEDS: Dronedarone HCl 400 MG TAB PO SCH ×2 (10:45→17:16)
[2020-02-22] MEDS: Gabapentin 100 MG CAP PO SCH ×3 (10:45→21:05)
[2020-02-22] MEDS ORDERED: Furosemide 20 MG/2 ML VIAL SLOW IVP SCH (17:30)
[2020-02-22] MEDS ORDERED: Sodium Chloride 0.9% 500 ML IV SCH (18:30)
[2020-02-22] MEDS: Atorvastatin Calcium 40 MG TAB PO SCH (21:05)
[2020-02-22] MEDS: Montelukast Sodium 10 mg Tablet PO SCH (21:05)
[2020-02-23] MEDS: Hydrocortisone Sod Succ/PF 100 mg/2 ml Vial IVP SCH ×5 (00:17→23:54)
[2020-02-23] MEDS: Acetaminophen 500 MG TAB PO SCH ×5 (00:17→23:54)
[2020-02-23] MEDS: Ibuprofen 200 MG TAB PO SCH ×3 (06:02→21:44)
[2020-02-23] MEDS: Levothyroxine Sodium 25 MCG TAB PO SCH (06:02)
[2020-02-23 07:01] LABS: Anion Gap 10 mmol/L (10-20); BUN (Urea Nitrogen) 29 mg/dL (9.8-20.1); Calc. Creatinine Clearance 38 mL/min (70-130); Calcium 8.1 mg/dL (7.8-10.44); Carbon Dioxide 21 mmol/L (23-31); Chloride 104 mmol/L (98-107); Estimated GFR-MDRD 50; Glucose 121 mg/dL (83-110); Magnesium 2.2 mg/dL (1.6-2.6); Phosphorus 3.2 mg/dL (2.3-4.7); Potassium 4.4 mmol/L (3.5-5.1); Sodium 131 mmol/L (136-145)
[2020-02-23] MEDS: Mometasone 100 MCG/Formoterol 5 MCG 120 PUFF INHALER INH SCH ×2 (07:39→18:37)
[2020-02-23] MEDS ORDERED: Potassium Chloride 20 MEQ TAB PO SCH (08:00)
--- NOTE | 2020-02-23 08:37 | RAD ---
SINGLE VIEW CHEST: HISTORY: Hypoxia, needing oxygen. COMPARISON: 02/20/20 FINDINGS: A single view of the chest shows an enlarged but stable cardiomediastinal silhouette with atheroscler otic calcifications in the aorta. Increased interstitial markings are present. The patient is status post sternotomy for CABG. There may be trace bilateral pleural effusions. IMPRESSION: Cardiomegaly and trace bilateral pleural effusions. POS: [facility]
[2020-02-23] MEDS: Potassium Chloride 20 MEQ TAB PO SCH (08:45)
[2020-02-23] MEDS: Furosemide 40 MG TAB PO SCH (08:45)
[2020-02-23] MEDS: Gabapentin 100 MG CAP PO SCH ×3 (08:45→21:45)
[2020-02-23] MEDS: Dronedarone HCl 400 MG TAB PO SCH ×2 (08:45→17:11)
[2020-02-23] MEDS: Senokot S 8.6-50 MG TAB PO SCH ×2 (08:45→21:44)
[2020-02-23] MEDS: Polyethylene Glycol 3350 17 GM Packet PO SCH (08:46)
[2020-02-23] MEDS: Ferrous Sulfate 325 MG TAB PO SCH ×2 (08:46→21:45)
[2020-02-23] MEDS: Digoxin 0.125 MG TAB PO SCH (08:46)
[2020-02-23 08:50] LABS: #Lymphocytes 0.5 thou/uL (1.20-3.40); #Monocytes 0.3 thou/uL (0.11-0.59); #Neutrophils 4.8 thou/uL (1.40-6.50); %Basophils 0.2 % (0.0-1.0); %Eosinophils 0.4 % (0.0-10.0); %Lymphocytes 8.3 % (21.0-51.0); %Monocytes 4.8 % (0.0-10.0); %Neutrophils 86.4 % (42.0-75.0); Anisocytosis MODERATE=16-30 cells (100X) (0-5/hpf); Hemoglobin 9.1 g/dL (12.0-16.0); Large Platelets SLIGHT; MDiff Complete? YES; Mean Corpuscular HGB CONC 33.2 g/dL (32.0-36.0); Mean Corpuscular Hemoglobin 29.1 pg (27.0-31.0); Mean Corpuscular Volume 87.6 fL (78.0-98.0); Mean Platelet Volume 8.9 fL (7.4-10.4); Ovalocytes SLIGHT = 2-5 cells (100X) (0-1/hpf); Platelet Count 86 thou/uL (130-400); Platelet Morphology Comment Appears Decreased; RBC Distribution Width 17.9 % (11.5-14.5); Red Blood Cell (RBC) Count 3.14 mill/uL (4.20-5.40); White Blood Cell (WBC) Count 5.5 thou/uL (4.8-10.8)
[2020-02-23] MEDS ORDERED: Furosemide 40 MG TAB PO SCH (09:00)
--- NOTE | 2020-02-23 19:17 | PRG ---
DATE OF SERVICE: 02/23/2020 SUBJECTIVE: The patient was seen with Dr. Cannon during morning rounds. The patient was awake, alert, sitting up in bed, eating her breakfast. The patient denies any chest pain, shortness of breath, or palpitations at this time. The patient's heart rate is elevated and remains in atrial fibrillation. When the patient takes a deep breath and coughs and also uses her Acapella, her blood pressure comes down. The patient did sit up in the chair for approximately 3-1/2 hours yesterday. The patient reports that her pain is well controlled to her right upper extremity. The patient does have some mild pain in the pelvis area with movement. The patient's echocardiogram was taken, but is pending read. The patient was placed on a free water 1 L restriction for her hyponatremia, although her sodium continues to go down. The patient's urinary output has been adequate for age and weight. PHYSICAL EXAMINATION: VITAL SIGNS: Temperature 96.5, pulse 82, blood pressure 142/72, and SpO2 of 96% on room air. GENERAL: Well-appearing elderly female, awake, alert, in no distress. RESPIRATORY: Bilateral breath sounds clear. No respiratory distress. CARDIAC: Irregularly irregular rate, no pedal edema. EXTREMITIES: Moves all extremities, no focal deficits. Right upper extremity is splinted and in a sling. Cap refill less than 2. NEUROLOGIC: No focal deficits, GCS 15. LABORATORY DATA: WBC 5.5, RBC 3.14, hemoglobin 9.1, hematocrit 27.5, and platelets 86. Sodium 131, potassium 4.4, chloride 104, BUN 29, creatinine 1.04, estimated GFR 50, glucose 121, calcium 8.1, phosphorus 3.2, and magnesium 2.2. BNP 459.4. DIAGNOSTIC DATA: Chest x-ray, impression, cardiomegaly and trace bilateral pleural effusions. IMPRESSION: 1. Status post fall from standing, possible near syncopal episode. 2. Right superior and inferior pubic rami fracture, nonoperative. 3. Right open distal radius fracture, status post repair. 4. Ewl-DB-gmqvrbmcw myocardial infarction, likely due to demand ischemia, resolved. 5. Acute adrenal insufficiency, resolved. 6. Hyponatremia, worsening. 7. History of coronary artery disease, hypertension, peripheral vascular disease, paroxysmal atrial fibrillation, osteoporosis, hiatal hernia, chronic anemia, congestive heart failure with diastolic dysfunction, colon cancer, left-sided ischemic stroke, aortic stenosis, and gastroesophageal reflux disease. PLAN: We will restrict the patient's free water for 24 hours, the patient may have unlimited Gatorade or anything else that is just water as the patient's hyponatremia has worsened. Continue to monitor urinary output. Increase physical and occupational therapy. Continue pulmonary toilet. Pending echocardiogram results. Job ID: [id number]
[2020-02-23] MEDS: Atorvastatin Calcium 40 MG TAB PO SCH (21:44)
[2020-02-23] MEDS: Montelukast Sodium 10 mg Tablet PO SCH (21:44)
[2020-02-23] MEDS: Enoxaparin Sodium 40 MG/0.4 ML SYRINGE SC SCH (21:45)
--- NOTE | 2020-02-24 01:10 | PRG ---
DATE OF SERVICE: 02/23/2020 SUBJECTIVE: The patient was seen this evening during rounds. She was sitting up in bed, resting comfortably and asleep with no signs of acute distress. Nursing reported no acute events. The patient still has a nerve block in her right upper extremity. Bridges is still in place and output is appropriate. OBJECTIVE: VITAL SIGNS: Temperature 98.7, pulse 95, respirations 22, oxygen saturation 97% on nasal cannula, and blood pressure 108/58. GENERAL: Well-appearing elderly female, sitting in bed, asleep with no signs of acute distress. PULMONARY: Equal chest rise and fall. No signs of acute respiratory distress. ASSESSMENT: 1. Status post ground level fall. 2. Right open radius fracture, status post repair. 3. Right superior and inferior pubic rami fracture. 4. Possible presyncopal episode. 5. Yeh-TI-dlpeyjbap myocardial infarction, resolved. 6. Acute adrenal insufficiency, stable. 7. History of coronary artery bypass grafting, coronary artery disease, hypertension, peripheral vascular disease, atrial fibrillation, aortic stenosis, congestive heart failure with diastolic dysfunction, left-sided ischemic stroke, hiatal hernia, asthma, hypothyroidism, osteoarthritis, anemia, colon cancer, and gastroesophageal reflux disease. PLAN: Continue current diet and pain regimen. No free water for 24 hours in order to monitor hyponatremia. We will discontinue Bridges in the morning. We have started Lovenox this evening. We will focus on bronchial hygiene with aggressive incentive spirometry use. Repeat blood work in the morning. Job ID: [id number]
[2020-02-24 05:05] LABS: Anisocytosis SLIGHT = 6-15 cells (100X) (0-5/hpf); Band 11 % (5-11); Eosinophils 1 % (0-10); Large Platelets SLIGHT; Lymphocytes 12 % (21-51); MDiff Complete? YES; Mean Corpuscular HGB CONC 33.4 g/dL (32.0-36.0); Mean Corpuscular Hemoglobin 29.3 pg (27.0-31.0); Mean Corpuscular Volume 87.6 fL (78.0-98.0); Mean Platelet Volume 12.6 fL (7.4-10.4); Monocytes 6 % (0-10); Neutrophil 70 % (42-75); Platelet Count 83 thou/uL (130-400); Platelet Morphology Comment Appears Decreased; RBC Distribution Width 17.9 % (11.5-14.5); Red Blood Cell (RBC) Count 3.09 mill/uL (4.20-5.40); White Blood Cell (WBC) Count 4.2 thou/uL (4.8-10.8)
[2020-02-24 05:11] LABS: Anion Gap 12 mmol/L (10-20); BUN (Urea Nitrogen) 29 mg/dL (9.8-20.1); Calc. Creatinine Clearance 41 mL/min (70-130); Calcium 8.4 mg/dL (7.8-10.44); Carbon Dioxide 20 mmol/L (23-31); Chloride 105 mmol/L (98-107); Estimated GFR-MDRD 55; Glucose 105 mg/dL (83-110); Magnesium 2.3 mg/dL (1.6-2.6); Phosphorus 2.9 mg/dL (2.3-4.7); Potassium 4.7 mmol/L (3.5-5.1); Sodium 132 mmol/L (136-145)
[2020-02-24] MEDS: Hydrocortisone Sod Succ/PF 100 mg/2 ml Vial IVP SCH ×2 (06:09→18:13)
[2020-02-24] MEDS: Ibuprofen 200 MG TAB PO SCH ×3 (06:10→21:16)
[2020-02-24] MEDS: Acetaminophen 500 MG TAB PO SCH ×4 (06:10→23:54)
[2020-02-24] MEDS: Levothyroxine Sodium 25 MCG TAB PO SCH (06:10)
[2020-02-24] MEDS: Mometasone 100 MCG/Formoterol 5 MCG 120 PUFF INHALER INH SCH ×2 (07:43→18:49)
[2020-02-24] MEDS ORDERED: Sodium Phosphate 15 MMOL in Sodium Chloride 0.9% 250 ML 250 ML IVPB SCH (07:45)
[2020-02-24] MEDS: Senokot S 8.6-50 MG TAB PO SCH ×2 (09:41→20:47)
[2020-02-24] MEDS: Digoxin 0.125 MG TAB PO SCH (09:41)
[2020-02-24] MEDS: Dronedarone HCl 400 MG TAB PO SCH ×2 (09:42→18:10)
[2020-02-24] MEDS: Potassium Chloride 20 MEQ TAB PO SCH (09:42)
[2020-02-24] MEDS: Furosemide 40 MG TAB PO SCH (09:42)
[2020-02-24] MEDS: Ferrous Sulfate 325 MG TAB PO SCH ×2 (09:42→20:47)
[2020-02-24] MEDS: Gabapentin 100 MG CAP PO SCH ×3 (09:42→20:47)
[2020-02-24] MEDS: Polyethylene Glycol 3350 17 GM Packet PO SCH (09:43)
--- NOTE | 2020-02-24 15:21 | PRG ---
DATE OF SERVICE: 02/24/2020 SUBJECTIVE: The patient was seen this morning during rounds. She was sitting up in bed and comfortable with no signs of acute distress. She reported her pain is well controlled. She is tolerating her diet. She is working with Physical and Occupational Therapy. Bridges catheter has been removed for pending void trial. OBJECTIVE: VITAL SIGNS: Temperature 98.8, pulse 102, respirations 21, oxygen saturation 98% on room air, blood pressure 106/62. GENERAL: Well-appearing elderly female, sitting up in bed with no signs of acute distress. PULMONARY: Equal chest rise and fall. No signs of acute respiratory distress. Clear breath sounds bilaterally. CARDIAC: Regular rate and rhythm. GI: Abdomen is soft, nontender, nondistended. EXTREMITIES: 2+ pulses in all extremities. Gross motor and sensation intact. Right upper extremity is splinted with a nerve block in place. NEUROLOGIC: GCS is 15. LABORATORY FINDINGS: White count 4.2, hemoglobin 9.0, hematocrit 27.0, platelets 83. Sodium 132, potassium 4.7, chloride 105, bicarb 20, BUN 29, creatinine 0.96, glucose 105, phosphorus 2.9, magnesium 2.3. DIAGNOSTIC FINDINGS: There are no new diagnostic findings to report. ASSESSMENT: 1. Status post ground level fall, on aspirin. 2. Right open radius fracture. 3. Right superior and inferior pubic rami fracture. 4. Presyncope episode. 5. Hyc-HQ-hxffoytun myocardial infarction, resolved. 6. Acute adrenal insufficiency, stable. 7. Hyponatremia, improving. 8. History of coronary artery bypass grafting, coronary artery disease, hypertension, peripheral vascular disease, atrial fibrillation, aortic stenosis, CHF with diastolic dysfunction, left sided ischemic stroke, hiatal hernia, asthma, hypothyroidism, osteoarthritis, anemia, colon cancer, and gastroesophageal reflux disease. PLAN: Continue current diet. Continue 1 L of free water restriction. Decrease hydrocortisone to q.12 hours. Replace sodium phos. The patient will move from the IMCU to the floor. Continue physical therapy. Start working on placement for SNF versus inpatient rehab. Job ID: [id number]
[2020-02-24] MEDS: Ascorbic Acid 500 mg Chewable Tablet PO SCH (18:12)
[2020-02-24] MEDS: Atorvastatin Calcium 40 MG TAB PO SCH (20:47)
[2020-02-24] MEDS: Montelukast Sodium 10 mg Tablet PO SCH (20:47)
[2020-02-24] MEDS: Enoxaparin Sodium 40 MG/0.4 ML SYRINGE SC SCH (20:47)
[2020-02-25] MEDS: Hydrocortisone Sod Succ/PF 100 mg/2 ml Vial IVP SCH (05:59)
[2020-02-25] MEDS: Acetaminophen 500 MG TAB PO SCH ×3 (05:59→18:28)
[2020-02-25] MEDS: Levothyroxine Sodium 25 MCG TAB PO SCH (05:59)
[2020-02-25] MEDS: Ibuprofen 200 MG TAB PO SCH ×2 (06:00→14:56)
[2020-02-25 06:01] LABS: Anion Gap 10 mmol/L (10-20); BUN (Urea Nitrogen) 25 mg/dL (9.8-20.1); Calc. Creatinine Clearance 47 mL/min (70-130); Calcium 8.7 mg/dL (7.8-10.44); Carbon Dioxide 22 mmol/L (23-31); Chloride 108 mmol/L (98-107); Estimated GFR-MDRD 64; Glucose 74 mg/dL (83-110); Magnesium 2.3 mg/dL (1.6-2.6); Phosphorus 3.3 mg/dL (2.3-4.7); Potassium 4.3 mmol/L (3.5-5.1); Sodium 136 mmol/L (136-145)
[2020-02-25] MEDS: Mometasone 100 MCG/Formoterol 5 MCG 120 PUFF INHALER INH SCH ×2 (06:46→19:29)
[2020-02-25] MEDS: Dronedarone HCl 400 MG TAB PO SCH ×2 (08:31→18:28)
[2020-02-25] MEDS: Gabapentin 100 MG CAP PO SCH ×3 (08:31→20:37)
[2020-02-25] MEDS: Ascorbic Acid 500 mg Chewable Tablet PO SCH ×2 (08:31→18:28)
[2020-02-25] MEDS: Potassium Chloride 20 MEQ TAB PO SCH (08:32)
[2020-02-25] MEDS: Furosemide 40 MG TAB PO SCH (08:32)
[2020-02-25] MEDS: Senokot S 8.6-50 MG TAB PO SCH ×2 (08:33→20:37)
[2020-02-25] MEDS: Polyethylene Glycol 3350 17 GM Packet PO SCH (08:33)
[2020-02-25] MEDS: Ferrous Sulfate 325 MG TAB PO SCH ×2 (08:34→20:36)
[2020-02-25] MEDS: Digoxin 0.125 MG TAB PO SCH (08:35)
[2020-02-25] MEDS: traMADol HCl 50 MG TAB PO PRN (10:45)
--- NOTE | 2020-02-25 15:30 | PRG ---
DATE OF SERVICE: 02/25/2020 SUBJECTIVE: The patient remains on the surgical floor. She is status post ground level fall, which she sustained an open radius fracture, right superior and inferior pubic rami fracture. She has been working with physical and occupational therapy. She is tolerating a diet and her pain is controlled. Unfortunately, the patient's first choice for placement is no longer accepting patients due to COVID and we will now attempt to get her into an [facility]. PHYSICAL EXAMINATION: VITAL SIGNS: Temperature is 97.9, heart rate 86, blood pressure 152/84, respirations 16, oxygen saturation 98% on room air. GENERAL: The patient is resting comfortably in bed. She has been working with physical and occupational therapy and she was just recently discussing her placement option with the rehab technical sales representatives. HEENT: Unremarkable. LUNGS: Have scattered rhonchi bilaterally. The patient is due for a breathing treatment at this time. HEART: Regular rate and rhythm. ABDOMEN: Soft, flat, nontender with active bowel sounds. EXTREMITIES: Neurovascularly intact x4. Her right upper extremity has a posterior splint and sling in place and she also has a nerve block in there. Wound VAC is in place and appears to be functioning. LABORATORY FINDINGS: Sodium 136, potassium 4.3, chloride 108, CO2 of 22, BUN 25, creatinine 0.84, glucose 74, magnesium 2.3, phosphorus 3.3. There were no radiographs to review this morning. ASSESSMENT: 1. Status post ground level fall, on aspirin. 2. Status post irrigation and debridement, open reduction and internal fixation of a right open radius fracture. 3. Right superior and inferior pubic rami fracture, stable. 4. Presyncope episode, resolved. 5. Non-ST elevation myocardial infarction, type 2, demand, resolved. 6. Acute renal insufficiency, stable. 7. Hyponatremia, resolved. PLAN: Will be to continue supportive care. Encourage physical and occupational therapy and await placement decision. Job ID: [id number]
[2020-02-25] MEDS ORDERED: Morphine 2 MG/ML VIAL SLOW IVP PRN (17:57)
[2020-02-25] MEDS: Atorvastatin Calcium 40 MG TAB PO SCH (20:36)
[2020-02-25] MEDS: Montelukast Sodium 10 mg Tablet PO SCH (20:37)
[2020-02-25] MEDS: Enoxaparin Sodium 40 MG/0.4 ML SYRINGE SC SCH (21:15)
[2020-02-26] MEDS: Acetaminophen 500 MG TAB PO SCH ×5 (00:05→23:30)
--- NOTE | 2020-02-26 03:10 | PRG ---
DATE OF SERVICE: 02/26/2020 SUBJECTIVE: Ms. Leal is an 89-year-old female, status post ground level fall. She sustained right open wrist fracture, status post ORIF of right open wrist fracture. She also suffered from right pelvic fracture, nonoperative. She has a history of diabetes, hypertension. Currently, the patient sleeping comfortable with no signs of respiratory distress. Nurse reports the patient has been stable with no complaints. OBJECTIVE: GENERAL: Currently, the patient is lying down in bed, sleeping comfortably with no signs of respiratory distress. VITAL SIGNS: Temperature 98, heart rate 82, respiratory rate 16, O2 saturation 96% on room air, and blood pressure 105/63. LUNGS: Clear bilaterally. HEART: Regular rate and rhythm. ABDOMEN: Soft and nondistended. EXTREMITIES: Neurovascularly intact x4. ASSESSMENT: 1. Status post ground level fall. 2. Right open wrist fracture, status post repair. 3. Right pelvic fracture, conservative treatment. 4. History of diabetes. 5. Hyponatremia, resolved. PLAN: Continue supportive care. Continue pain control. Continue working with Physical Therapy And Occupational Therapy. Continue DVT prophylaxis. Anticipate discharge to rehabilitation facility. Job ID: [id number]
[2020-02-26] MEDS: Levothyroxine Sodium 25 MCG TAB PO SCH (05:34)
[2020-02-26] MEDS: Mometasone 100 MCG/Formoterol 5 MCG 120 PUFF INHALER INH SCH ×2 (07:18→19:07)
[2020-02-26] MEDS: Ascorbic Acid 500 mg Chewable Tablet PO SCH ×2 (08:46→16:58)
[2020-02-26] MEDS: Potassium Chloride 20 MEQ TAB PO SCH (08:47)
[2020-02-26] MEDS: Dronedarone HCl 400 MG TAB PO SCH ×2 (08:47→16:58)
[2020-02-26] MEDS: Gabapentin 100 MG CAP PO SCH ×3 (08:47→20:38)
[2020-02-26] MEDS: Furosemide 40 MG TAB PO SCH (08:47)
[2020-02-26] MEDS: Digoxin 0.125 MG TAB PO SCH (08:47)
[2020-02-26] MEDS: Ferrous Sulfate 325 MG TAB PO SCH ×2 (08:47→16:59)
[2020-02-26] MEDS: Senokot S 8.6-50 MG TAB PO SCH ×2 (08:48→20:39)
[2020-02-26] MEDS: Polyethylene Glycol 3350 17 GM Packet PO SCH (08:48)
[2020-02-26] MEDS: traMADol HCl 50 MG TAB PO PRN ×2 (09:20→17:26)
[2020-02-26] MEDS ORDERED: Fentanyl 100 MCG/2 ML VIAL SLOW IVP PRN (10:14)
[2020-02-26 11:42] VITALS: BMI 27.3
[2020-02-26] MEDS ORDERED: Melatonin 3 MG TAB PO PRN (13:50)
--- NOTE | 2020-02-26 18:58 | PRG ---
DATE OF SERVICE: 02/26/2020 SUBJECTIVE: The patient remains on the surgical floor. She is status post ground-level fall, in which she sustained an open right distal radius fracture, in which she has undergone irrigation and debridement, open reduction and internal fixation of the same. She also currently has a wound VAC on this injury. She has also sustained right inferior pubic rami fractures from a ground-level fall. She has been waiting for bed availability at rehab. She has insurance approval and we are predicting that it will most likely be tomorrow. The patient had no issues overnight. PHYSICAL EXAMINATION: VITAL SIGNS: Temperature is 97.8, heart rate 74, respirations 18, oxygen saturation 98% on room air, blood pressure 111/64. GENERAL: The patient is resting comfortably in bed. She is awake, conversant, and appropriate. Her only complaint is that she did not get good sleep last night. HEENT: Unremarkable. LUNGS: Continue to have scant scattered rhonchi bilaterally. HEART: Regular rate and rhythm. ABDOMEN: Soft, flat, and nontender with active bowel sounds. EXTREMITIES: Neurovascularly intact x4. Right upper extremity has a clean, dry, and intact splint. Her wound VAC has just been changed by the Wound Care team. LABORATORY DATA: There are no labs or radiographs to review this morning. ASSESSMENT AND PLAN: 1. Status post ground-level fall, on aspirin. 2. Status post irrigation and debridement, open reduction and internal fixation of right open radius fracture with wound vacuum-assisted closure placement. 3. Right superior inferior pubic rami fracture, stable. 4. Presyncopal episode, resolved. 5. Non-ST elevated myocardial infarction, type 2, demand ischemia, resolved. 6. Acute renal insufficiency, stable. 7. Hyponatremia, resolved. Plan will be to continue supportive care. Encourage physical and occupational therapy, and await bed availability at rehab. The patient was seen this morning with Dr. Cannon during rounds. Job ID: [id number]
[2020-02-26] MEDS: Atorvastatin Calcium 40 MG TAB PO SCH (20:38)
[2020-02-26] MEDS: Enoxaparin Sodium 40 MG/0.4 ML SYRINGE SC SCH (20:38)
[2020-02-26] MEDS: Montelukast Sodium 10 mg Tablet PO SCH (20:38)
--- NOTE | 2020-02-27 00:07 | PDOC.BPN ---
- Brief Progress Note DATE OF SERVICE: 02/26/2020 SUBJECTIVE: Ms. Leal is an 89-year-old female, status post ground level fall. She sustained right open wrist fracture, status post ORIF of right open wrist fracture. She also suffered from right pelvic fracture, nonoperative. She has a history of diabetes, hypertension. Currently, the patient sleeping comfortable with no signs of respiratory distress. Nurse reports the patient has been stable with no complaints. OBJECTIVE: GENERAL: Currently, the patient is lying down in bed, sleeping comfortably with no signs of respiratory distress. VITAL SIGNS: Temperature 98, heart rate 82, respiratory rate 16, O2 saturation 96% on room air, and blood pressure 105/63. LUNGS: Clear bilaterally. HEART: Regular rate and rhythm. ABDOMEN: Soft and nondistended. EXTREMITIES: Neurovascularly intact x4. Subcutaneous contusion/ bruising stable ASSESSMENT: 1. Status post ground level fall. 2. Right open wrist fracture, status post repair. 3. Right pelvic fracture, conservative treatment. 4. History of diabetes. 5. Hyponatremia, resolved. PLAN: Continue supportive care. Continue pain control. Continue working with Physical Therapy And Occupational Therapy. Continue DVT prophylaxis. Anticipate discharge to rehabilitation facility.
[2020-02-27] MEDS: Levothyroxine Sodium 25 MCG TAB PO SCH (05:10)
[2020-02-27] MEDS: Acetaminophen 500 MG TAB PO SCH ×2 (05:10→11:22)
[2020-02-27] MEDS: Mometasone 100 MCG/Formoterol 5 MCG 120 PUFF INHALER INH SCH (06:41)
[2020-02-27] MEDS: Senokot S 8.6-50 MG TAB PO SCH (08:20)
[2020-02-27] MEDS: Digoxin 0.125 MG TAB PO SCH (08:20)
[2020-02-27] MEDS: Ascorbic Acid 500 mg Chewable Tablet PO SCH (08:21)
[2020-02-27] MEDS: Furosemide 40 MG TAB PO SCH (08:21)
[2020-02-27] MEDS: Ferrous Sulfate 325 MG TAB PO SCH (08:21)
[2020-02-27] MEDS: Polyethylene Glycol 3350 17 GM Packet PO SCH ×2 (08:21→08:26)
[2020-02-27] MEDS: Potassium Chloride 20 MEQ TAB PO SCH (08:21)
[2020-02-27] MEDS: Dronedarone HCl 400 MG TAB PO SCH (08:22)
[2020-02-27] MEDS: Gabapentin 100 MG CAP PO SCH (08:22)
[2020-02-27] MEDS: traMADol HCl 50 MG TAB PO PRN (11:23)
[2020-02-27 11:28] VITALS: TEMP 98.2
[2020-02-27 12:34] VITALS: BP 92/57
== END 2020-02-27 13:20 | DRG 510 ==
LOC: ERS 17:39 → 2NO 21:41 → IMCU/EMU 02-21 14:06 → SURG B 02-24 14:21
PROVIDERS: ADMIT Surgery; ATTEND Surgery
PROC: 0PSH04Z Reposition Right Radius with Internal Fixation Device, Open Approach (ICD-10-PCS; principal; 2020-02-21)
PROC: 0PSK04Z Reposition Right Ulna with Internal Fixation Device, Open Approach (ICD-10-PCS; 2020-02-21)
DX: S52.501B Unspecified fracture of the lower end of right radius, initial encounter for open fracture type I or II (principal); I21.A1 Myocardial infarction type 2; I50.32 Chronic diastolic (congestive) heart failure; C18.9 Malignant neoplasm of colon, unspecified; E27.40 Unspecified adrenocortical insufficiency; E87.1 Hypo-osmolality and hyponatremia; W18.39XA Other fall on same level, initial encounter; J45.909 Unspecified asthma, uncomplicated; E03.9 Hypothyroidism, unspecified; Z66 Do not resuscitate; I11.0 Hypertensive heart disease with heart failure; K21.9 Gastro-esophageal reflux disease without esophagitis; M81.0 Age-related osteoporosis without current pathological fracture; I35.0 Nonrheumatic aortic (valve) stenosis; I48.0 Paroxysmal atrial fibrillation; I95.9 Hypotension, unspecified; I73.9 Peripheral vascular disease, unspecified; Z95.1 Presence of aortocoronary bypass graft; Z79.01 Long term (current) use of anticoagulants; Z90.710 Acquired absence of both cervix and uterus; Z90.49 Acquired absence of other specified parts of digestive tract; Z98.42 Cataract extraction status, left eye; Z98.41 Cataract extraction status, right eye
CPT/HCPCS: 29125; 36415; 36416; 51702; 71045; 72170; 74177; 76000; 80048; 80053; 80162; 81003; 82533; 82553; 83735; 83880; 84100; 84484; 85025; 85610; 85730; 87635; 90471; 90715; 93005; 93010; 93306; 94640; 96360; 96361; 96365; 96375; A4306; G0390; J0360; J0670; J0690; J1650; J1720; J1885; J2270; J2405; J2795; J3010; J3490; J7050; J7620; Q9967; U0003

== ENCOUNTER 2020-03-20 10:47 | Inpatient (IN) | payer MEDICARE, BC ==
[2020-03-20 11:31] LABS: Hemoglobin 8.8 g/dL (12.0-16.0); Mean Corpuscular HGB CONC 33.3 g/dL (32.0-36.0); Mean Corpuscular Hemoglobin 29.1 pg (27.0-31.0); Mean Corpuscular Volume 87.4 fL (78.0-98.0); Mean Platelet Volume 9.5 fL (7.4-10.4); Platelet Count 301 thou/uL (130-400); RBC Distribution Width 17.3 % (11.5-14.5); Red Blood Cell (RBC) Count 3.03 mill/uL (4.20-5.40); White Blood Cell (WBC) Count 15.8 thou/uL (4.8-10.8)
--- NOTE | 2020-03-20 11:37 | RAD ---
Chest AP view INDICATION: History of pneumonia COMPARISON: February 23, 2020 FINDINGS: Lungs: There is worsening airspace disease within the right midlung, right lower lobe, left midlung and left lower lobe. Cardiac silhouette: There is moderate cardiomegaly that is stable. There are prominent mitral annula r calcifications. There is stable post procedural change of a prior CABG. Pulmonary vasculature: Pulmonary vasculature appears mildly engorged. Pleural spaces: There is a worsening small left and tiny right pleural effusion Upper abdomen: No abnormality seen. Osseous structures: There is scattered degenerative and osteoarthritic change present. Additional findings: None. IMPRESSION: Worsening bilateral airspace disease may reflect edema or pneumonia. There is a component of mild CHF present. Continued radiographic follow-up is recommended.
[2020-03-20 11:51] LABS: Band 18 % (5-11); Eosinophils 4 % (0-10); Lymphocytes 6 % (21-51); MDiff Complete? YES; Metamyelocyte 8 % (0-0); Monocytes 2 % (0-10); Myelocyte 5 % (0-0); Neutrophil 57 % (42-75); Platelet Morphology Comment Appears Adequate; Polychromasia SLIGHT = 2-3 cells (100X) (0-2/hpf)
[2020-03-20 11:59] LABS: ALT (SGPT) 28 U/L (8-55); AST (SGOT) 56 U/L (5-34); Albumin 2.9 g/dL (3.4-4.8); Alkaline Phosphatase 305 U/L (40-110); Anion Gap 13 mmol/L (10-20); BUN (Urea Nitrogen) 24 mg/dL (9.8-20.1); Bilirubin, Total 1.3 mg/dL (0.2-1.2); Calc. Creatinine Clearance 0 mL/min (70-130); Calcium 10.6 mg/dL (7.8-10.44); Carbon Dioxide 18 mmol/L (23-31); Chloride 108 mmol/L (98-107); Estimated GFR-MDRD 70; Globulin 4.2 g/dL (2.4-3.5); Glucose 89 mg/dL (83-110); Magnesium 2.5 mg/dL (1.6-2.6); Potassium 4.7 mmol/L (3.5-5.1); Protein, Total 7.1 g/dL (6.0-8.3); Sodium 134 mmol/L (136-145)
[2020-03-20 12:12] LABS: CKMB 0.9 ng/mL (0-6.6)
[2020-03-20] MEDS ORDERED: Vancomycin 1 GM/200 ML BAG ONE (13:17)
[2020-03-20] MEDS ORDERED: Senokot S 8.6-50 MG TAB PO PRN (15:08)
[2020-03-20 15:27] LABS: Troponin I 0.039 ng/mL (< 0.028)
[2020-03-20] MEDS ORDERED: Sodium Chloride 0.9% 1,000 ML IV SCH (15:45)
[2020-03-20] MEDS ORDERED: Albuterol Sulfate 2.5 mg/3 ml Neb NEB PRN (15:45)
[2020-03-20 15:51] LABS: Digoxin 1.66 ng/mL (0.8-2.0)
[2020-03-20 16:48] VITALS: BMI 26.9
[2020-03-20] MEDS: Ascorbic Acid 500 mg Chewable Tablet PO SCH (17:50)
[2020-03-20 18:04] LABS: Troponin I 0.038 ng/mL (< 0.028)
[2020-03-20] MEDS: Dronedarone HCl 400 MG TAB PO SCH (18:27)
[2020-03-20] MEDS: Montelukast Sodium 10 mg Tablet PO SCH (20:36)
[2020-03-20] MEDS: Fluticasone Propionate Nasal Spray 16 gm Bottle NASAL SCH (22:27)
[2020-03-20] MEDS: Azelastine 137 MCG/Spray 30 ML NS SCH (22:28)
[2020-03-20] MEDS: Acetaminophen 325 MG TAB PO PRN (23:24)
[2020-03-20] MEDS: Aztreonam 1 GM in Sodium Chloride 0.9% 100 ML IVPB SCH (23:41)
[2020-03-21] MEDS: Vancomycin 1 GM in Premix Bag 1 BAG IVPB SCH ×2 (00:45→14:30)
--- NOTE | 2020-03-21 04:02 | HP ---
CHIEF COMPLAINT: Shortness of breath and possible pneumonia. HISTORY OF PRESENT ILLNESS: An 89-year-old female with a history of asthma, coronary artery disease, status post CABG, osteoporosis, peripheral vascular disease, paroxysmal atrial fibrillation, not on anticoagulation, hypothyroidism , CHF with diastolic dysfunction, presenting today with shortness of breath. She was admitted on February 19 for ground level fall with right open wrist fracture and right pelvic fracture and undergone ORIF of right open wrist fracture and discharged on for rehab. From the rehab, she went to the senior care facility. She had a routine followup with primary care physician, noted to have elevated white count of 15,000, and tachycardia. She did not look good, so she was brought in here for further evaluation. Initially, she is tachycardic, respiratory rate of 30, and blood pressure 98/62, which seems to be at baseline for her. Chest x-ray showed worsening bilateral airspace disease, pneumonia versus edema. There is mild CHF as well. Her troponin is 0.039. Creatinine of 0.78. Her calcium was elevated at 10.6 and her last calcium was 8.7 on March 19. Mild elevation in her AST noted and troponin indeterminate with 0.039. She does have elevated white count of 15.8. The patient will be admitted for healthcare-associated pneumonia. The patient looks quite fragile and able to give me some sketchy information. On monitor her blood pressure is 101/60. She is alert and oriented x3, but she looks quite fragile. She has right shoulder in a sling. She has extensive ecchymosis on her lower extremities. She is also having lots of non-blanchable stage I ulcer in the sacral area. In the ER, they also noted to have dark tarry stool, more appeared like greenish. They have sent out for occult blood test. Her hemoglobin also dropped from 11 to 8.8. Her hemoglobin yesterday was 7.8 and today is 8.8. REVIEW OF SYSTEMS: Not obtainable completely from the patient, but no record of fever, night sweats, chills, productive cough. ALLERGIES: SHE IS ALLERGIC TO SEVERAL; PENICILLIN, AMOXICILLIN, CEPHALEXIN, SULFA, GATIFLOXACIN, AND MORE. PAST MEDICAL HISTORY: 1. Coronary artery disease, status post CABG. 2. Hypertension. 3. Osteoporosis. 4. Peripheral vascular disease. 5. Paroxysmal atrial fibrillation. 6. Hypothyroidism. 7. CHF with diastolic dysfunction. 8. Colon cancer. 9. Left-sided ischemic stroke. 10. Aortic stenosis. 11. GERD. MEDICATIONS: 1. Singulair 10 mg at bedtime. 2. Levothyroxine 25 mcg daily. 3. Multaq 200 mg twice a day. 4. Digoxin 1 tablet unknown dose daily. 5. Aspirin 81 mg daily. 6. Tramadol 50 q.6h as needed. 7. Lasix 40 mg daily. 8. Flexeril 5 mg t.i.d. 9. Lipitor 80 mg. PHYSICAL EXAMINATION: VITAL SIGNS: She is afebrile. Currently, her blood pressure is 101/60. She is saturating over 95% with 2 L oxygen by nasal cannula. GENERAL: She is alert and oriented, her mentation at baseline, but she looks so fragile. She has right shoulder sling and extensive ecchymoses on her arms as well as at the lower extremities. She also has a non-blanchable stage I ulcer in the sacral area. HEART: She has irregular rhythm, regular rate. LUNGS: She has poor aeration bilaterally with anterior auscultation. ABDOMEN: Soft, nontender, nondistended. Good bowel sounds. EXTREMITIES: As noted. Edema is not evaluated completely, but it appears she does have mild edema, but more ecchymosis is quite impressive. NEUROLOGICAL: Complete exam not performed, given her fragility. Cranial nerves 2 through 12 grossly intact. Sensation and strength for her age seems to be appropriate. LABORATORY AND DIAGNOSTIC DATA: WBC 15.8, platelets 301, and hemoglobin 8.8. Sodium 134, creatinine 0.78. Troponin 0.039. Bicarb 18, chloride 108, potassium 4.7. Lactic acid 1.3. Chest x-ray shows worsening of the bilateral airspace disease. IMPRESSION AND PLAN: This is a 89-year-old female with multiple comorbidities, presenting due to the followin. Shortness of breath at rest. 2. Bilateral airspace disease. 3. Healthcare-associated pneumonia. 4. Questionable tarry stool. 5. The patient is admitted for healthcare-associated pneumonia. She is allergic to penicillin, cephalosporin. We will continue with vancomycin and aztreonam for now. Need to follow blood cultures. We will follow that and she also must be swabbed for COVID. Continue her cardiac medications and check digoxin level. For history of atrial fibrillation, she is not on any blood thinner. Continue with Multaq for rate control. 6. Hypercalcemia. Yesterday's level was 8 and then today 10.6, probably dehydration. We need to check she got 1 L fluid. I will give another liter of gentle hydration. We will check her calcium level this evening. 7. Recent fall and right open wrist fracture. ER physician did notify the Trauma Surgery and they want hospitalist team to admit. We will initiate formal consult with them. Creatinine is normal. We will provide DVT prophylaxis with Lovenox. Job ID: [id number] MTDD
[2020-03-21 04:37] LABS: Anion Gap 13 mmol/L (10-20); BUN (Urea Nitrogen) 19 mg/dL (9.8-20.1); Calc. Creatinine Clearance 57 mL/min (70-130); Calcium 9.7 mg/dL (7.8-10.44); Carbon Dioxide 15 mmol/L (23-31); Chloride 111 mmol/L (98-107); Estimated GFR-MDRD 82; Glucose 89 mg/dL (83-110); Potassium 4.3 mmol/L (3.5-5.1); Sodium 135 mmol/L (136-145)
[2020-03-21 05:38] LABS: Band 22 % (5-11); Eosinophils 5 % (0-10); Lymphocytes 6 % (21-51); MDiff Complete? YES; Mean Corpuscular HGB CONC 32.6 g/dL (32.0-36.0); Mean Corpuscular Hemoglobin 28.8 pg (27.0-31.0); Mean Corpuscular Volume 88.4 fL (78.0-98.0); Mean Platelet Volume 8.9 fL (7.4-10.4); Metamyelocyte 5 % (0-0); Monocytes 2 % (0-10); Myelocyte 5 % (0-0); Neutrophil 55 % (42-75); Platelet Count 297 thou/uL (130-400); Platelet Morphology Comment Appears Adequate; Polychromasia SLIGHT = 2-3 cells (100X) (0-2/hpf); RBC Distribution Width 17.4 % (11.5-14.5); Red Blood Cell (RBC) Count 2.76 mill/uL (4.20-5.40)
[2020-03-21] MEDS: Levothyroxine Sodium 25 MCG TAB PO SCH (05:52)
[2020-03-21] MEDS: Dronedarone HCl 400 MG TAB PO SCH ×2 (08:27→18:16)
[2020-03-21] MEDS: Ascorbic Acid 500 mg Chewable Tablet PO SCH ×2 (08:27→18:16)
[2020-03-21] MEDS: Aspirin 81 mg Enteric Coated Tablet PO SCH (08:29)
[2020-03-21] MEDS: Digoxin 0.125 MG TAB PO SCH (08:29)
[2020-03-21] MEDS: Azelastine 137 MCG/Spray 30 ML NS SCH ×2 (08:30→21:11)
[2020-03-21] MEDS: Fluticasone Propionate Nasal Spray 16 gm Bottle NASAL SCH (08:36)
[2020-03-21] MEDS ORDERED: AZELASTINE EA NARE SCH (09:00)
[2020-03-21] MEDS ORDERED: Prevnar 13-Val Conj/PF 0.5 ML SYRINGE IM ONE (09:00)
[2020-03-21] MEDS ORDERED: FLUTICASONE EA NARE SCH (09:00)
--- NOTE | 2020-03-21 10:23 | RAD ---
Exam: Right wrist 2 views: HISTORY: 4 weeks postop ORIF and PIN placement COMPARISON: 02/21/2020 FINDINGS: There is been some radial and dorsal foreshortening of the previously noted comminuted fracture and l argest radial fracture. This has worsened when compared to the prior exam. IMPRESSION: Foreshortening of the largest distal radial fracture fragment in the radial and dorsal position.
[2020-03-21] MEDS ORDERED: Sodium Chloride 0.9% 10 ML ONE (11:19)
[2020-03-21] MEDS: Aztreonam 1 GM in Sodium Chloride 0.9% 100 ML IVPB SCH (12:50)
[2020-03-21 13:04] LABS: Vancomycin, Trough 17.4 ug/mL
[2020-03-21 13:12] LABS: Bacteria/HPF None Seen HPF (None Seen); Bilirubin Negative (Negative); Blood, Urine Negative (Negative); Clarity Clear (Clear); Glucose, Urine (Dipstick) Normal (Negative); Ketone, Urine Negative (Negative); Leukocyte 25 Leu/uL (Negative); Nitrite Negative (Negative); Protein, Urine (Dipstick) Negative (Neg-Trace); RBC/HPF 0-3 HPF (0-3); Specific Gravity, Urine 1.006 (1.002-1.036); Squamous Epithelial None Seen HPF (0-3); WBC/HPF 0-3 HPF (0-3)
[2020-03-21] MEDS ORDERED: Furosemide 20 MG/2 ML VIAL SLOW IVP SCH (14:00)
[2020-03-21] MEDS ORDERED: Sodium Chloride 0.9% 500 ML IV SCH (20:00)
--- NOTE | 2020-03-21 20:07 | PDOC.HOSPP ---
- Subjective Encounter Date: 03/21/20 Encounter Time: 11:00 Subjective: no overnight events. This morning, feeling well and has no complaints. Denies having pleuritic pain, worsening cough, sputum, chills, night sweats on this presentation. - Objective Vital Signs & Weight: Vital Signs (12 hours) Temp Pulse Resp BP Pulse Ox 03/21/20 15:15 97.5 F L 66 26 H 82/49 L 96 03/21/20 13:34 88/52 L 03/21/20 11:55 98.1 F 69 24 H 87/53 L 97 03/21/20 08:29 79 Weight Weight 137 lb 11.2 oz I&O: 03/20/20 03/21/20 03/22/20 06:59 06:59 06:59 Intake Total 360 1240 Output Total 2500 1550 Balance -2140 -310 Result Diagrams: 03/21/20 04:07 03/21/20 04:07 Hospitalist ROS - Review of Systems Constitutional: denies: fever, chills, sweats Respiratory: denies: cough, shortness of breath, hemoptysis, pleuritic pain, sputum Cardiovascular: denies: chest pain, palpitations, orthopnea Gastrointestinal: denies: nausea, vomiting Genitourinary: denies: dysuria, frequency, hematuria - Medication Medications: Active Medications Generic Name Dose Route Start Last Admin Trade Name Freq PRN Reason Stop Dose Admin Acetaminophen 650 mg 03/20/20 15:08 03/20/20 23:24 Tylenol PO 650 mg Q4H PRN Administration Headache/Fever/Mild Pain (1-3) Ascorbic Acid 500 mg 03/20/20 17:00 03/21/20 18:16 Vitamin C PO 500 mg BID-WM JEAN CARLOS Administration Aspirin 81 mg 03/21/20 09:00 03/21/20 08:29 Ecotrin PO 81 mg DAILY JEAN CARLOS Administration Azelastine HCl 0 ml 03/20/20 21:00 03/21/20 08:30 Azelastine NS 2 spr BID JEAN CARLOS Administration Digoxin 0.125 mg 03/21/20 09:00 03/21/20 08:29 Lanoxin PO 0.125 mg DAILY JEAN CARLOS Administration Dronedarone 200 mg 03/20/20 17:00 03/21/20 18:16 Multaq PO 200 mg BID-WM JEAN CARLOS Administration Fluticasone Propionate 0 gm 03/20/20 21:00 03/21/20 08:36 Flonase Nasal [place] NASAL 1 spr BID JEAN CARLOS Administration Levothyroxine Sodium 25 mcg 03/21/20 06:00 03/21/20 05:52 Synthroid PO 25 mcg 0600 JEAN CARLOS Administration Montelukast Sodium 10 mg 03/20/20 21:00 03/20/20 20:36 Singulair PO 10 mg HS JEAN CARLOS Administration Sodium Chloride 10 ml 03/21/20 09:21 03/21/20 14:35 Flush - Normal Saline IVF 10 ml PRN PRN Administration Saline Flush - Exam General Appearance: NAD, awake alert Neck: no JVD Heart: RRR, no murmur, no gallops, no rubs Respiratory: CTAB, no wheezes, no rales, no ronchi Gastrointestinal: soft, non-tender, non-distended, normal bowel sounds Extremities: no edema Psychiatric: normal affect, normal behavior, A&O x 3 Hosp A/P - Plan #shortness of breath #HFpEF -elevated BNP -Denied symptoms of lower respiratory tract infection -resolved with diuresis stopped ABx echocardiography #R wrist fracture s/p ORIF -Ortho consulted since xray showed failing hardware; pending intervention #hypotension -patient on midodrine at home -gave small bolus, restarted midodrine -continue to follow #tarry stool -used to take ferrous sulfate at home -no reports of tarry stool as inpatient -started lovenox PPx Disposition/PPx Full code GI PPx: lovenox DVT PPx: Lovenox
[2020-03-21] MEDS ORDERED: Melatonin 3 MG TAB PO PRN (20:13)
[2020-03-21] MEDS ORDERED: Bisacodyl 5 MG TAB PO PRN (20:13)
[2020-03-21] MEDS: Montelukast Sodium 10 mg Tablet PO SCH (21:06)
[2020-03-21] MEDS: Atorvastatin Calcium 40 MG TAB PO SCH (21:06)
[2020-03-21] MEDS: Midodrine HCl 5 MG TAB PO SCH (21:06)
[2020-03-21] MEDS: Enoxaparin Sodium 30 MG/0.3 ML SYRINGE SC SCH (21:11)
[2020-03-22] MEDS: Acetaminophen 325 MG TAB PO PRN (01:38)
[2020-03-22] MEDS: Levothyroxine Sodium 25 MCG TAB PO SCH (05:14)
[2020-03-22 05:42] LABS: Anion Gap 11 mmol/L (10-20); BUN (Urea Nitrogen) 15 mg/dL (9.8-20.1); Calc. Creatinine Clearance 58 mL/min (70-130); Calcium 9.4 mg/dL (7.8-10.44); Carbon Dioxide 18 mmol/L (23-31); Chloride 111 mmol/L (98-107); Estimated GFR-MDRD 83; Glucose 74 mg/dL (83-110); Potassium 4.3 mmol/L (3.5-5.1); Sodium 136 mmol/L (136-145)
[2020-03-22 06:04] LABS: Hemoglobin 8.6 g/dL (12.0-16.0); Mean Corpuscular HGB CONC 33.1 g/dL (32.0-36.0); Mean Corpuscular Hemoglobin 29.5 pg (27.0-31.0); Mean Corpuscular Volume 89.3 fL (78.0-98.0); Mean Platelet Volume 8.5 fL (7.4-10.4); Platelet Count 311 thou/uL (130-400); RBC Distribution Width 17.3 % (11.5-14.5); Red Blood Cell (RBC) Count 2.91 mill/uL (4.20-5.40); White Blood Cell (WBC) Count 12.8 thou/uL (4.8-10.8)
[2020-03-22 06:10] LABS: Band 20 % (5-11); Eosinophils 6 % (0-10); Lymphocytes 10 % (21-51); MDiff Complete? YES; Metamyelocyte 5 % (0-0); Monocytes 3 % (0-10); Myelocyte 6 % (0-0); Neutrophil 50 % (42-75); Platelet Morphology Comment Appears Adequate; Polychromasia SLIGHT = 2-3 cells (100X) (0-2/hpf); Toxic Granulation SLIGHT
[2020-03-22] MEDS: Mometasone 100 MCG/Formoterol 5 MCG 120 PUFF INHALER INH SCH ×2 (07:16→22:34)
--- NOTE | 2020-03-22 08:28 | CON ---
DATE OF CONSULTATION: 03/21/2020 REASON FOR CONSULTATION: Followup on right distal radius metaphyseal fracture, status post percutaneous pin fixation at 4 weeks. BRIEF CLINICAL HISTORY: Nina is an 89-year-old female, known to our service for a prior distal radius fracture 4 weeks ago when she fell on an outstretched forearm. She had an open laceration and had very fragile skin. Therefore, we elected to proceed with percutaneous pin fixation as an attempt to stabilize her distal radius fracture and control settling. She has been seen in [facility] and has been convalescing at [facility] for the last 3 to 4 weeks. She has been admitted to the hospital on this occasion for a pneumonia, probably hospital acquired. Currently being treated with antibiotics for this. Our service is being consulted for followup care and re-evaluation of her distal radius fracture. She reports no problems with the wrist. She has been in a sugar-tong splint now for 4 weeks. PHYSICAL EXAMINATION: She has good digital excursion. Pin site check demonstrates good clean skin. Both pins were removed. IMAGING STUDIES: AP and lateral of the right wrist demonstrate her to have some settling of her distal radius metaphyseal fracture, a little bit of radial deviation is noted with the settling and she is ulnar positive, best appreciated on AP view. Lateral view demonstrates relatively controlled settling, little bit of dorsal bayonetting, but overall alignment does not show significant angular deformity. IMPRESSION: Right distal radius metaphyseal fracture at 4 weeks with settling despite pin fixation. PLAN: 1. Removal of pins was performed at the bedside today. 2. We will continue to follow her and keep her in a sugar-tong splint and re-evaluate her skin, but it might be best at this time to put her in a volar splint and allow for her to have elbow range of motion. We will recheck the patient. Job ID: [id number]
[2020-03-22] MEDS: Dronedarone HCl 400 MG TAB PO SCH ×2 (08:34→16:45)
[2020-03-22] MEDS: Multivit, Therapeutic 1 TAB PO SCH (08:34)
[2020-03-22] MEDS: Aspirin 81 mg Enteric Coated Tablet PO SCH (08:34)
[2020-03-22] MEDS: Potassium Chloride 20 MEQ TAB PO SCH (08:36)
[2020-03-22] MEDS: Ascorbic Acid 500 mg Chewable Tablet PO SCH ×2 (08:36→16:44)
[2020-03-22] MEDS: Ferrous Sulfate 325 MG TAB PO SCH ×2 (08:36→16:44)
[2020-03-22] MEDS: Digoxin 0.125 MG TAB PO SCH (08:36)
[2020-03-22] MEDS: Midodrine HCl 5 MG TAB PO SCH ×3 (08:36→20:20)
[2020-03-22] MEDS: Azelastine 137 MCG/Spray 30 ML NS SCH ×2 (08:37→20:18)
[2020-03-22] MEDS: Polyethylene Glycol 3350 17 GM Packet PO SCH (08:37)
[2020-03-22] MEDS: buPROPion 75 MG TAB PO SCH (08:43)
[2020-03-22] MEDS ORDERED: Midodrine HCl 5 MG TAB PO SCH (12:15)
--- NOTE | 2020-03-22 16:07 | PRG ---
DATE OF SERVICE: SUBJECTIVE: Nina is an 89-year-old female. We followed for pin removal in distal radius. She is doing relatively well. She has no complaints. OBJECTIVE: Skin is about the same. She has good digital excursion. Her sugar-tong splint is intact. IMPRESSION: Right distal radius metaphyseal fracture, status post percutaneous pin fixation with settling and collapse, but otherwise acceptable alignment. PLAN: We will order a volar distal radius splint and remove the sugar-tong tomorrow. Job ID: [id number]
--- NOTE | 2020-03-22 18:47 | PDOC.HOSPP ---
- Subjective Encounter Date: 03/22/20 Encounter Time: 08:00 Subjective: no overnight evnets. this morning, complains of tailbone pain. Otherwise no complaints. - Objective Vital Signs & Weight: Vital Signs (12 hours) Temp Pulse Resp BP Pulse Ox 03/22/20 16:40 97.6 F 16 L 16 97/55 L 96 03/22/20 11:44 98.2 F 76 16 79/46 L 97 03/22/20 08:36 76 03/22/20 08:25 98.2 F 76 18 95/56 L 97 03/22/20 07:16 69 16 95 Weight Weight 137 lb 11.2 oz I&O: 03/21/20 03/22/20 03/23/20 06:59 06:59 06:59 Intake Total 360 1890 Output Total 2500 5250 Balance -0290 -6423 Result Diagrams: 03/22/20 04:44 03/22/20 04:44 Hospitalist ROS - Review of Systems Constitutional: denies: chills, sweats Respiratory: denies: cough, shortness of breath, pleuritic pain Cardiovascular: denies: chest pain, palpitations Gastrointestinal: denies: nausea, vomiting, abdominal pain Genitourinary: denies: dysuria, frequency, hematuria - Medication Medications: Active Medications Generic Name Dose Route Start Last Admin Trade Name Freaj PRN Reason Stop Dose Admin Acetaminophen 650 mg 03/20/20 15:08 03/22/20 01:38 Tylenol PO 650 mg Q4H PRN Administration Headache/Fever/Mild Pain (1-3) Ascorbic Acid 500 mg 03/20/20 17:00 03/22/20 16:44 Vitamin C PO 500 mg BID-WM JEAN CARLOS Administration Aspirin 81 mg 03/21/20 09:00 03/22/20 08:34 Ecotrin PO 81 mg DAILY JEAN CARLOS Administration Atorvastatin Calcium 40 mg 03/21/20 21:00 03/21/20 21:06 Lipitor PO 40 mg HS JEAN CARLOS Administration Azelastine HCl 0 ml 03/20/20 21:00 03/22/20 08:37 Azelastine NS Not Given BID JEAN CARLOS Bupropion HCl 75 mg 03/22/20 09:00 03/22/20 08:43 Wellbutrin PO 75 mg DAILY JEAN CARLOS Administration Digoxin 0.125 mg 03/21/20 09:00 03/22/20 08:36 Lanoxin PO 0.125 mg DAILY JEAN CARLOS Administration Dronedarone 200 mg 03/20/20 17:00 03/22/20 16:45 Multaq PO 200 mg BID-WM JEAN CARLOS Administration Enoxaparin Sodium 30 mg 03/21/20 21:00 03/21/20 21:11 Lovenox SC 30 mg 2100 JEAN CARLOS Administration Ferrous Sulfate 325 mg 03/22/20 08:00 03/22/20 16:44 Feosol PO 325 mg BID-WM JEAN CARLOS Administration Levothyroxine Sodium 25 mcg 03/21/20 06:00 03/22/20 05:14 Synthroid PO 25 mcg 0600 JEAN CARLOS Administration Midodrine 5 mg 03/22/20 15:00 03/22/20 16:45 Proamatine PO 5 mg TID JEAN CARLOS Administration Mometasone Furoate/Formoterol Fumar 2 puff 03/22/20 06:30 03/22/20 07:16 Dulera 100 Mcg/5 Mcg Inhaler INH 2 puff BID-RT JEAN CARLOS Administration Montelukast Sodium 10 mg 03/20/20 21:00 03/21/20 21:06 Singulair PO 10 mg HS JEAN CARLOS Administration Multivitamins 1 tab 03/22/20 09:00 03/22/20 08:34 Theragran PO 1 tab DAILY JEAN CARLOS Administration Pantoprazole Sodium 40 mg 03/22/20 09:00 03/22/20 08:34 Protonix PO 40 mg DAILY JEAN CARLOS Administration Polyethylene Glycol 17 gm 03/22/20 09:00 03/22/20 08:37 Miralax PO Not Given DAILY JEAN CARLOS Potassium Chloride 20 meq 03/22/20 08:00 03/22/20 08:36 K-Dur PO 20 meq QAM-WM JEAN CARLOS Administration Sodium Chloride 10 ml 03/21/20 21:00 03/22/20 08:38 Flush - Normal Saline IVF 10 ml Q12HR JEAN CARLOS Administration Sodium Chloride 10 ml 03/21/20 09:21 03/21/20 14:35 Flush - Normal Saline IVF 10 ml PRN PRN Administration Saline Flush - Exam General Appearance: NAD, awake alert Neck: no JVD Heart: RRR, no murmur, no gallops, no rubs Respiratory: CTAB, no wheezes, no rales, no ronchi Gastrointestinal: soft, non-tender, non-distended, normal bowel sounds Extremities: no edema Extremities - other findings: right arm splint Psychiatric: normal affect, normal behavior, A&O x 3 Hosp A/P - Plan #shortness of breath (resolved) #HFpEF -elevated BNP -Denied symptoms of lower respiratory tract infection -echo showing moderate/severe aortic stenosis, diastolic function could not be assessed -stopped home lasix; will DC on PRN lasix and can be followed up with car distributor considering lasix can be harmful in context of patient's valulopathy #R wrist fracture s/p ORIF -Ortho consulted since xray showed failing hardware; pending intervention #hypotension -likely due to valvulopathy, possibly HF -patient on midodrine at home; increased dosage to 5mg TID #tarry stool (not as inpatient) -used to take ferrous sulfate at home -no reports of tarry stool as inpatient -started lovenox PPx Disposition/PPx Full code GI PPx: pantoprazole DVT PPx: Lovenox
[2020-03-22] MEDS: Enoxaparin Sodium 30 MG/0.3 ML SYRINGE SC SCH (20:20)
[2020-03-22] MEDS: Montelukast Sodium 10 mg Tablet PO SCH (20:20)
[2020-03-22] MEDS: Atorvastatin Calcium 40 MG TAB PO SCH (20:20)
[2020-03-23 04:51] LABS: Anion Gap 11 mmol/L (10-20); BUN (Urea Nitrogen) 17 mg/dL (9.8-20.1); Calc. Creatinine Clearance 59 mL/min (70-130); Calcium 9.5 mg/dL (7.8-10.44); Carbon Dioxide 18 mmol/L (23-31); Chloride 110 mmol/L (98-107); Estimated GFR-MDRD 85; Glucose 78 mg/dL (83-110); Potassium 4.4 mmol/L (3.5-5.1); Sodium 135 mmol/L (136-145)
[2020-03-23 05:17] LABS: Anisocytosis MODERATE=16-30 cells (100X) (0-5/hpf); Band 10 % (5-11); Eosinophils 11 % (0-10); Hemoglobin 8.7 g/dL (12.0-16.0); Lymphocytes 14 % (21-51); MDiff Complete? YES; Mean Corpuscular HGB CONC 32.5 g/dL (32.0-36.0); Mean Corpuscular Hemoglobin 28.7 pg (27.0-31.0); Mean Corpuscular Volume 88.3 fL (78.0-98.0); Mean Platelet Volume 9.1 fL (7.4-10.4); Metamyelocyte 4 % (0-0); Myelocyte 8 % (0-0); Neutrophil 53 % (42-75); Platelet Count 346 thou/uL (130-400); Platelet Morphology Comment Appears Adequate; RBC Distribution Width 17.7 % (11.5-14.5); Red Blood Cell (RBC) Count 3.02 mill/uL (4.20-5.40); White Blood Cell (WBC) Count 13.1 thou/uL (4.8-10.8)
[2020-03-23] MEDS: Levothyroxine Sodium 25 MCG TAB PO SCH (06:09)
[2020-03-23] MEDS: Mometasone 100 MCG/Formoterol 5 MCG 120 PUFF INHALER INH SCH ×2 (07:15→18:27)
[2020-03-23] MEDS: Ascorbic Acid 500 mg Chewable Tablet PO SCH ×2 (08:31→17:32)
[2020-03-23] MEDS: Dronedarone HCl 400 MG TAB PO SCH ×2 (08:31→17:32)
[2020-03-23] MEDS: Aspirin 81 mg Enteric Coated Tablet PO SCH (08:31)
[2020-03-23] MEDS: Ferrous Sulfate 325 MG TAB PO SCH ×2 (08:31→17:32)
[2020-03-23] MEDS: Digoxin 0.125 MG TAB PO SCH (08:31)
[2020-03-23] MEDS: Midodrine HCl 5 MG TAB PO SCH ×3 (08:32→20:12)
[2020-03-23] MEDS: Azelastine 137 MCG/Spray 30 ML NS SCH ×2 (08:32→20:11)
[2020-03-23] MEDS: Multivit, Therapeutic 1 TAB PO SCH (08:32)
[2020-03-23] MEDS: Polyethylene Glycol 3350 17 GM Packet PO SCH (08:32)
[2020-03-23] MEDS: Potassium Chloride 20 MEQ TAB PO SCH (08:32)
[2020-03-23] MEDS: buPROPion 75 MG TAB PO SCH (08:36)
--- NOTE | 2020-03-23 16:36 | PDOC.HOSPP ---
- Subjective Encounter Date: 03/23/20 Encounter Time: 08:00 Subjective: no overnight events. this morning, has no complaints requests to go home. Explained that orthopedic surgery still managing her right wrist fracture. - Objective Vital Signs & Weight: Vital Signs (12 hours) Temp Pulse Pulse Pulse Pulse Resp BP 03/23/20 15:17 97.9 F 68 14 03/23/20 11:22 98.0 F 59 L 17 03/23/20 10:45 65 59 L 80/53 L 03/23/20 10:25 69 69 80/53 L 03/23/20 08:26 98.3 F 70 15 BP BP BP Pulse Ox 03/23/20 15:17 94/55 L 94 L 03/23/20 11:22 95/58 L 98 03/23/20 10:45 87/56 L 95/58 L 03/23/20 10:25 87/56 L 94/55 L 03/23/20 08:26 92/51 L 96 Weight Weight 137 lb 11.2 oz I&O: 03/22/20 03/23/20 03/24/20 06:59 06:59 06:59 Intake Total 1890 1450 Output Total 2663 0885 Balance -2481 -232 Result Diagrams: 03/23/20 03:56 03/23/20 03:56 Hospitalist ROS - Review of Systems Constitutional: denies: chills, sweats Respiratory: denies: cough, shortness of breath, pleuritic pain Cardiovascular: denies: chest pain, palpitations, orthopnea, edema Gastrointestinal: denies: nausea, vomiting, abdominal pain, diarrhea Genitourinary: denies: dysuria, frequency, hematuria Musculoskeletal: reports: other (buttock pain, improved) - Medication Medications: Active Medications Generic Name Dose Route Start Last Admin Trade Name Freq PRN Reason Stop Dose Admin Acetaminophen 650 mg 03/20/20 15:08 03/22/20 01:38 Tylenol PO 650 mg Q4H PRN Administration Headache/Fever/Mild Pain (1-3) Ascorbic Acid 500 mg 03/20/20 17:00 03/23/20 08:31 Vitamin C PO 500 mg BID-WM JEAN CARLOS Administration Aspirin 81 mg 03/21/20 09:00 03/23/20 08:31 Ecotrin PO 81 mg DAILY JEAN CARLOS Administration Atorvastatin Calcium 40 mg 03/21/20 21:00 03/22/20 20:20 Lipitor PO 40 mg HS JEAN CARLOS Administration Azelastine HCl 0 ml 03/20/20 21:00 03/23/20 08:32 Azelastine NS 2 spr BID JEAN CARLOS Administration Bupropion HCl 75 mg 03/22/20 09:00 03/23/20 08:36 Wellbutrin PO 75 mg DAILY JEAN CARLOS Administration Digoxin 0.125 mg 03/21/20 09:00 03/23/20 08:31 Lanoxin PO 0.125 mg DAILY JEAN CARLOS Administration Dronedarone 200 mg 03/20/20 17:00 03/23/20 08:31 Multaq PO 200 mg BID-WM JEAN CARLOS Administration Enoxaparin Sodium 30 mg 03/21/20 21:00 03/22/20 20:20 Lovenox SC 30 mg 2100 JEAN CARLOS Administration Ferrous Sulfate 325 mg 03/22/20 08:00 03/23/20 08:31 Feosol PO 325 mg BID-WM JEAN CARLOS Administration Levothyroxine Sodium 25 mcg 03/21/20 06:00 03/23/20 06:09 Synthroid PO 25 mcg 0600 JEAN CARLOS Administration Midodrine 5 mg 03/22/20 15:00 03/23/20 15:21 Proamatine PO 5 mg TID JEAN CARLOS Administration Mometasone Furoate/Formoterol Fumar 2 puff 03/22/20 06:30 03/23/20 07:15 Dulera 100 Mcg/5 Mcg Inhaler INH 2 puff BID-RT JEAN CARLOS Administration Montelukast Sodium 10 mg 03/20/20 21:00 03/22/20 20:20 Singulair PO 10 mg HS JEAN CARLOS Administration Multivitamins 1 tab 03/22/20 09:00 03/23/20 08:32 Theragran PO 1 tab DAILY JEAN CARLOS Administration Pantoprazole Sodium 40 mg 03/22/20 09:00 03/23/20 08:32 Protonix PO 40 mg DAILY JEAN CARLOS Administration Polyethylene Glycol 17 gm 03/22/20 09:00 03/23/20 08:32 Miralax PO 17 gm DAILY JEAN CARLOS Administration Potassium Chloride 20 meq 03/22/20 08:00 03/23/20 08:32 K-Dur PO 20 meq QAM-WM JEAN CARLOS Administration Sodium Chloride 10 ml 03/21/20 21:00 03/23/20 08:37 Flush - Normal Saline IVF 10 ml Q12HR JEAN CARLOS Administration Sodium Chloride 10 ml 03/21/20 09:21 03/21/20 14:35 Flush - Normal Saline IVF 10 ml PRN PRN Administration Saline Flush - Exam General Appearance: NAD, awake alert Neck: no JVD Heart: irregular Heart - other findings: 4/6 pansystolic left 2nd intercostal murmur Respiratory: CTAB, no wheezes, no rales, no ronchi Gastrointestinal: soft, non-tender, non-distended, normal bowel sounds Extremities - other findings: right wrist splint Psychiatric: normal affect, normal behavior, A&O x 3 Hosp A/P - Plan #shortness of breath (resolved) #HFpEF -elevated BNP -Denied symptoms of lower respiratory tract infection -echo showing moderate/severe aortic stenosis, diastolic function could not be assessed -stopped home lasix; will DC on PRN lasix and can be followed up with community health educator considering lasix can be harmful in context of patient's valulopathy #R wrist fracture s/p ORIF -Ortho consulted since xray showed failing hardware; pending intervention #hypotension -likely due to valvulopathy, possibly HF -patient on midodrine at home; improved since increasing dosage to 5mg TID #tarry stool (not as inpatient) -used to take ferrous sulfate at home -no reports of tarry stool as inpatient -HgB stable Disposition/PPx Full code GI PPx: pantoprazole DVT PPx: Lovenox
--- NOTE | 2020-03-23 17:20 | PRG ---
DATE OF SERVICE: 03/23/2020 SUBJECTIVE: Nina is an 89-year-old female who we taken on consult for a right distal radius metaphyseal fracture, last followup 4 weeks ago, with an accompanying large skin tear. She has been treated by wound care and I had removed her two percutaneous pins yesterday. Today, we are going to remove her from a sugar-tong and place her in a volar splint. OBJECTIVE: After removal of the sugar-tong, her skin looks good and pin sites are clean. Her skin tear has all cleared. Stitches are intact still. They were removed. IMPRESSION: Four weeks postop percutaneous pin fixation for right distal radius metaphyseal fracture with collapse, but without angular deformity. PLAN: We will place her in a volar splint and schedule for followup in 14 days in fracture clinic. Job ID: [id number]
[2020-03-23] MEDS: Atorvastatin Calcium 40 MG TAB PO SCH (20:12)
[2020-03-23] MEDS: Montelukast Sodium 10 mg Tablet PO SCH (20:12)
[2020-03-23] MEDS: Enoxaparin Sodium 30 MG/0.3 ML SYRINGE SC SCH (20:12)
[2020-03-23] MEDS: Acetaminophen 325 MG TAB PO PRN (20:12)
[2020-03-23] MEDS ORDERED: Sodium Chloride 0.9% 500 ML IVPB SCH (22:00)
[2020-03-24 05:27] LABS: Anion Gap 12 mmol/L (10-20); BUN (Urea Nitrogen) 17 mg/dL (9.8-20.1); Calc. Creatinine Clearance 58 mL/min (70-130); Calcium 9.3 mg/dL (7.8-10.44); Carbon Dioxide 15 mmol/L (23-31); Chloride 108 mmol/L (98-107); Estimated GFR-MDRD 83; Glucose 77 mg/dL (83-110); Magnesium 2.1 mg/dL (1.6-2.6); Phosphorus 2.9 mg/dL (2.3-4.7); Potassium 4.7 mmol/L (3.5-5.1); Sodium 130 mmol/L (136-145)
[2020-03-24] MEDS: Levothyroxine Sodium 25 MCG TAB PO SCH (05:57)
[2020-03-24] MEDS: Mometasone 100 MCG/Formoterol 5 MCG 120 PUFF INHALER INH SCH ×2 (07:08→18:47)
[2020-03-24] MEDS: Aspirin 81 mg Enteric Coated Tablet PO SCH (08:28)
[2020-03-24] MEDS: Polyethylene Glycol 3350 17 GM Packet PO SCH (08:28)
[2020-03-24] MEDS: Dronedarone HCl 400 MG TAB PO SCH ×2 (08:29→17:59)
[2020-03-24] MEDS: Digoxin 0.125 MG TAB PO SCH (08:29)
[2020-03-24] MEDS: Ferrous Sulfate 325 MG TAB PO SCH ×2 (08:29→17:59)
[2020-03-24] MEDS ORDERED: Sodium Chloride 0.9% 500 ML IV SCH (08:30)
[2020-03-24] MEDS: Potassium Chloride 20 MEQ TAB PO SCH (08:30)
[2020-03-24] MEDS: Ascorbic Acid 500 mg Chewable Tablet PO SCH ×2 (08:30→17:59)
[2020-03-24] MEDS: Multivit, Therapeutic 1 TAB PO SCH (08:30)
[2020-03-24] MEDS: buPROPion 75 MG TAB PO SCH (08:30)
[2020-03-24] MEDS: Midodrine HCl 5 MG TAB PO SCH ×3 (08:30→21:29)
[2020-03-24] MEDS: Azelastine 137 MCG/Spray 30 ML NS SCH ×2 (08:31→21:30)
--- NOTE | 2020-03-24 13:22 | PQF ---
CLINICAL DOCUMENTATION CLARIFICATION FORM: Dear Dr. Chacon Date: 03/24/2020 Please exercise your independent, professional judgment in responding to the clarification form. Clinical indicators are provided on the bottom of this form for your review. Please check appropriate box(es): HEART FAILURE ACUITY: [ ] Acute Diastolic / HFpEF [ ] Acute on Chronic Diastolic / HFpEF [ x ] Chronic Diastolic / HFpEF [ ] Other diagnosis [ ] Unable to determine In addition, please specify: Present on Admission (POA): [ x ] Yes [ ] No [ ] Unable to determine For continuity of documentation, please document condition throughout progress notes and discharge summary. Thank You. To be completed by CDI/Coding staff for physician review: CLINICAL INDICATORS - SIGNS / SYMPTOMS / LABS / RESULTS AND LOCATION IN EMR H&P 03/20 ([facility]) Initially, she is tachycardic, resp. rate 30, BP 98/62, which seems to be at baseline for her. chest x-ray showed worsening bilateral airspace disease, pneumonia vs edema. There is mild CHF as well. 03/21 ([facility]) Shortness of breath HFpEF Elevated BNP Denied symptoms of lower respiratory tract infection Resolved with diuresis LAB 03/20: BNP 1305.2 ECHO 03/22: EF 60-65% 03/23 SOB (resolved) HFpEF Echo showing moderate/severe aortic stenosis, diastolic function could not be assessed. Hypotension -likely due to valvulopathy, possibly HF RISKS FACTORS / RESULTS AND LOCATION IN EMR H&P 03/20 ([facility]) PMH CAD s/p CABG. HTN, CHF with diastolic dysfunction. 03/21 ([facility]) hypotension. TREATMENTS / RESULTS AND LOCATION IN EMR Order 03/21: Lasix 20 mg slow IV (dcd 03/21) 03/21 ([facility]) Stopped ABX. Echocardiography 03/23 ([facility]) stopped home lasix, will DC on prn lasix and be followed up with lapper considering lasix can be harmful in context of pt;s valvulopathy Thank you, Elham Almanzar, RN, BSN [email or web address] This is a permanent part of the Medical Record [facility]
--- NOTE | 2020-03-24 18:55 | PDOC.HOSPP ---
- Subjective Encounter Date: 03/24/20 Encounter Time: 09:00 Subjective: Overnight, hypotensive but asymptomatic, received fluid bolus. This morning, feeling well and has no complaints. Initiated discussion regarding goals of care considering patient's chronic comorbidities and quality of life. After patient discussed with family, decided to discuss the option of hospice - Objective Vital Signs & Weight: Vital Signs (12 hours) Temp Pulse Resp BP Pulse Ox 03/24/20 15:23 98.3 F 66 16 132/63 96 03/24/20 11:42 118/58 L 03/24/20 11:19 97.6 F 64 25 H 97 03/24/20 08:22 97.6 F 67 16 79/50 L 97 Weight Weight 137 lb 11.2 oz I&O: 03/23/20 03/24/20 03/25/20 06:59 06:59 06:59 Intake Total 1450 1960 750 Output Total 2075 3100 1300 Balance -625 -1140 -550 Result Diagrams: 03/23/20 03:56 03/24/20 04:06 Hospitalist ROS - Review of Systems Constitutional: denies: chills, sweats Respiratory: denies: cough, shortness of breath, SOB with excertion Cardiovascular: denies: chest pain, palpitations, orthopnea, paroxysmal noc. dyspnea, edema Gastrointestinal: denies: nausea, vomiting, abdominal pain, diarrhea - Medication Medications: Active Medications Generic Name Dose Route Start Last Admin Trade Name Freq PRN Reason Stop Dose Admin Acetaminophen 650 mg 03/20/20 15:08 03/23/20 20:12 Tylenol PO 650 mg Q4H PRN Administration Headache/Fever/Mild Pain (1-3) Ascorbic Acid 500 mg 03/20/20 17:00 03/24/20 17:59 Vitamin C PO 500 mg BID-WM JEAN CARLOS Administration Aspirin 81 mg 03/21/20 09:00 03/24/20 08:28 Ecotrin PO 81 mg DAILY JEAN CARLOS Administration Atorvastatin Calcium 40 mg 03/21/20 21:00 03/23/20 20:12 Lipitor PO 40 mg HS JEAN CARLOS Administration Azelastine HCl 0 ml 03/20/20 21:00 03/24/20 08:31 Azelastine NS 2 spr BID JEAN CARLOS Administration Bupropion HCl 75 mg 03/22/20 09:00 03/24/20 08:30 Wellbutrin PO 75 mg DAILY JEAN CARLOS Administration Digoxin 0.125 mg 03/21/20 09:00 03/24/20 08:29 Lanoxin PO 0.125 mg DAILY JEAN CARLOS Administration Dronedarone 200 mg 03/20/20 17:00 03/24/20 17:59 Multaq PO 200 mg BID-WM JEAN CARLOS Administration Enoxaparin Sodium 30 mg 03/21/20 21:00 03/23/20 20:12 Lovenox SC 30 mg 2100 JEAN CARLOS Administration Ferrous Sulfate 325 mg 03/22/20 08:00 03/24/20 17:59 Feosol PO 325 mg BID-WM JEAN CARLOS Administration Levothyroxine Sodium 25 mcg 03/21/20 06:00 03/24/20 05:57 Synthroid PO 25 mcg 0600 JEAN CARLOS Administration Midodrine 5 mg 03/22/20 15:00 03/24/20 15:29 Proamatine PO 5 mg TID JEAN CARLOS Administration Mometasone Furoate/Formoterol Fumar 2 puff 03/22/20 06:30 03/24/20 18:47 Dulera 100 Mcg/5 Mcg Inhaler INH 2 puff BID-RT JEAN CARLOS Administration Montelukast Sodium 10 mg 03/20/20 21:00 03/23/20 20:12 Singulair PO 10 mg HS JEAN CARLOS Administration Multivitamins 1 tab 03/22/20 09:00 03/24/20 08:30 Theragran PO 1 tab DAILY JEAN CARLOS Administration Pantoprazole Sodium 40 mg 03/22/20 09:00 03/24/20 08:29 Protonix PO 40 mg DAILY JEAN CARLOS Administration Polyethylene Glycol 17 gm 03/22/20 09:00 03/24/20 08:28 Miralax PO 17 gm DAILY JEAN CARLOS Administration Potassium Chloride 20 meq 03/22/20 08:00 03/24/20 08:30 K-Dur PO 20 meq QAM-WM JEAN CARLOS Administration Sodium Chloride 10 ml 03/21/20 21:00 03/24/20 08:44 Flush - Normal Saline IVF 10 ml Q12HR JEAN CARLOS Administration Sodium Chloride 10 ml 03/21/20 09:21 03/21/20 14:35 Flush - Normal Saline IVF 10 ml PRN PRN Administration Saline Flush - Exam General Appearance: NAD, awake alert Neck: no JVD Heart: no murmur, no gallops, no rubs, irregular Heart - other findings: afib, rate controlled on telemetry Gastrointestinal: soft, non-tender, non-distended, normal bowel sounds Extremities: no edema Psychiatric: normal affect, normal behavior, A&O x 3 Hosp A/P - Plan #shortness of breath (resolved) #HFpEF -elevated BNP -Denied symptoms of lower respiratory tract infection -echo showing moderate/severe aortic stenosis, diastolic function could not be assessed -stopped home lasix; will DC on PRN lasix and can be followed up with sheet cutter considering lasix can be harmful in context of patient's valulopathy #hypotonic hyponatremia #normal anion gap metabolic acidosis -likely due to reduced effective perfusion based on urine studies and reduced sodium intake and supplemental normal saline (acidosis) -regular diet -maintain elevated blood pressure -ACTH stimulation in AM #atrial fibrillation -on multaq and digoxin; no anticoagulation #R wrist fracture s/p ORIF -ortho onboard -s/p percutanous pin fixation and change of splint; no further intervention #hypotension -likely due to HF/valvulopathy -patient on midodrine at home; improved since increasing dosage to 5mg TID #tarry stool (not as inpatient) -used to take ferrous sulfate at home -no reports of tarry stool as inpatient -HgB stable Disposition/PPx Full code GI PPx: pantoprazole DVT PPx: Lovenox ELOS: 1 night, pending hospice evaluation
[2020-03-24] MEDS: Acetaminophen 325 MG TAB PO PRN (21:28)
[2020-03-24] MEDS: Atorvastatin Calcium 40 MG TAB PO SCH (21:29)
[2020-03-24] MEDS: Enoxaparin Sodium 30 MG/0.3 ML SYRINGE SC SCH (21:29)
[2020-03-24] MEDS: Montelukast Sodium 10 mg Tablet PO SCH (21:29)
[2020-03-25] MEDS: Levothyroxine Sodium 25 MCG TAB PO SCH (05:37)
[2020-03-25] MEDS: Mometasone 100 MCG/Formoterol 5 MCG 120 PUFF INHALER INH SCH ×2 (07:29→18:36)
[2020-03-25] MEDS ORDERED: Cosyntropin 250 MCG VIAL SLOW IVP SCH (07:31)
[2020-03-25 07:47] LABS: Anion Gap 12 mmol/L (10-20); BUN (Urea Nitrogen) 15 mg/dL (9.8-20.1); Calc. Creatinine Clearance 57 mL/min (70-130); Calcium 9.7 mg/dL (7.8-10.44); Carbon Dioxide 17 mmol/L (23-31); Chloride 109 mmol/L (98-107); Estimated GFR-MDRD 80; Glucose 81 mg/dL (83-110); Potassium 4.2 mmol/L (3.5-5.1); Sodium 134 mmol/L (136-145)
[2020-03-25 07:48] LABS: Anisocytosis SLIGHT = 6-15 cells (100X) (0-5/hpf); Band 12 % (5-11); Eosinophils 8 % (0-10); Hemoglobin 8.8 g/dL (12.0-16.0); Lymphocytes 12 % (21-51); MDiff Complete? YES; Mean Corpuscular HGB CONC 31.7 g/dL (32.0-36.0); Mean Corpuscular Hemoglobin 28.7 pg (27.0-31.0); Mean Corpuscular Volume 90.4 fL (78.0-98.0); Mean Platelet Volume 9.5 fL (7.4-10.4); Metamyelocyte 6 % (0-0); Monocytes 2 % (0-10); Neutrophil 59 % (42-75); Platelet Count 217 thou/uL (130-400); Platelet Morphology Comment Appears Adequate; Polychromasia SLIGHT = 2-3 cells (100X) (0-2/hpf); RBC Distribution Width 17.9 % (11.5-14.5); Red Blood Cell (RBC) Count 3.07 mill/uL (4.20-5.40); White Blood Cell (WBC) Count 10.1 thou/uL (4.8-10.8)
[2020-03-25] MEDS: Aspirin 81 mg Enteric Coated Tablet PO SCH (09:03)
[2020-03-25] MEDS: Dronedarone HCl 400 MG TAB PO SCH ×2 (09:03→17:30)
[2020-03-25] MEDS: Ascorbic Acid 500 mg Chewable Tablet PO SCH ×2 (09:03→17:30)
[2020-03-25] MEDS: buPROPion 75 MG TAB PO SCH (09:04)
[2020-03-25] MEDS: Azelastine 137 MCG/Spray 30 ML NS SCH ×2 (09:04→21:57)
[2020-03-25] MEDS: Multivit, Therapeutic 1 TAB PO SCH (09:04)
[2020-03-25] MEDS: Polyethylene Glycol 3350 17 GM Packet PO SCH (09:04)
[2020-03-25] MEDS: Midodrine HCl 5 MG TAB PO SCH ×3 (09:04→21:57)
[2020-03-25] MEDS: Digoxin 0.125 MG TAB PO SCH (09:04)
[2020-03-25] MEDS: Potassium Chloride 20 MEQ TAB PO SCH (09:04)
[2020-03-25] MEDS: Ferrous Sulfate 325 MG TAB PO SCH ×2 (09:04→17:30)
--- NOTE | 2020-03-25 17:07 | PDOC.HOSPP ---
- Subjective Encounter Date: 03/25/20 Encounter Time: 08:00 Subjective: overnight, hypotensive but asymptomatic again. this morning, feeling same, complains of improving buttocks pain. - Objective Vital Signs & Weight: Vital Signs (12 hours) Temp Pulse Resp BP Pulse Ox 03/25/20 16:14 92/57 L 03/25/20 15:41 98.1 F 60 20 81/53 L 97 03/25/20 12:18 97.9 F 62 20 103/56 L 96 03/25/20 07:37 97.4 F L 58 L 16 104/60 98 Weight Weight 137 lb 11.2 oz I&O: 03/24/20 03/25/20 03/26/20 06:59 06:59 06:59 Intake Total 1960 1887 Output Total 3108 3100 Balance -1140 -1213 Result Diagrams: 03/25/20 07:16 03/25/20 07:16 Hospitalist ROS - Review of Systems Constitutional: denies: chills, sweats Respiratory: denies: cough, shortness of breath, SOB with excertion, pleuritic pain Cardiovascular: denies: chest pain, palpitations, orthopnea, paroxysmal noc. dyspnea, edema Gastrointestinal: denies: nausea, vomiting, abdominal pain, diarrhea Musculoskeletal: reports: other (buttocks pain) - Medication Medications: Active Medications Generic Name Dose Route Start Last Admin Trade Name Freq PRN Reason Stop Dose Admin Acetaminophen 650 mg 03/20/20 15:08 03/24/20 21:28 Tylenol PO 650 mg Q4H PRN Administration Headache/Fever/Mild Pain (1-3) Ascorbic Acid 500 mg 03/20/20 17:00 03/25/20 09:03 Vitamin C PO 500 mg BID-WM JEAN CARLOS Administration Aspirin 81 mg 03/21/20 09:00 03/25/20 09:03 Ecotrin PO 81 mg DAILY JEAN CARLOS Administration Atorvastatin Calcium 40 mg 03/21/20 21:00 03/24/20 21:29 Lipitor PO 40 mg HS JEAN CARLOS Administration Azelastine HCl 0 ml 03/20/20 21:00 03/25/20 09:04 Azelastine NS 2 spr BID JEAN CARLOS Administration Bupropion HCl 75 mg 03/22/20 09:00 03/25/20 09:04 Wellbutrin PO 75 mg DAILY JEAN CARLOS Administration Digoxin 0.125 mg 03/21/20 09:00 03/25/20 09:04 Lanoxin PO 0.125 mg DAILY JEAN CARLOS Administration Dronedarone 200 mg 03/20/20 17:00 03/25/20 09:03 Multaq PO 200 mg BID-WM JEAN CARLOS Administration Enoxaparin Sodium 30 mg 03/21/20 21:00 03/24/20 21:29 Lovenox SC 30 mg 2100 JEAN CARLOS Administration Ferrous Sulfate 325 mg 03/22/20 08:00 03/25/20 09:04 Feosol PO 325 mg BID-WM JEAN CARLOS Administration Levothyroxine Sodium 25 mcg 03/21/20 06:00 03/25/20 05:37 Synthroid PO 25 mcg 0600 JEAN CARLOS Administration Midodrine 5 mg 03/22/20 15:00 03/25/20 16:14 Proamatine PO 5 mg TID JEAN CARLOS Administration Mometasone Furoate/Formoterol Fumar 2 puff 03/22/20 06:30 03/25/20 07:29 Dulera 100 Mcg/5 Mcg Inhaler INH 2 puff BID-RT JEAN CARLOS Administration Montelukast Sodium 10 mg 03/20/20 21:00 03/24/20 21:29 Singulair PO 10 mg HS JEAN CARLOS Administration Multivitamins 1 tab 03/22/20 09:00 03/25/20 09:04 Theragran PO 1 tab DAILY JEAN CARLOS Administration Pantoprazole Sodium 40 mg 03/22/20 09:00 03/25/20 09:04 Protonix PO 40 mg DAILY JEAN CARLOS Administration Polyethylene Glycol 17 gm 03/22/20 09:00 03/25/20 09:04 Miralax PO 17 gm DAILY JEAN CARLOS Administration Potassium Chloride 20 meq 03/22/20 08:00 03/25/20 09:04 K-Dur PO 20 meq QAM-WM JEAN CARLOS Administration Sodium Chloride 10 ml 03/21/20 21:00 03/25/20 09:05 Flush - Normal Saline IVF 10 ml Q12HR JEAN CARLOS Administration Sodium Chloride 10 ml 03/21/20 09:21 03/21/20 14:35 Flush - Normal Saline IVF 10 ml PRN PRN Administration Saline Flush - Exam General Appearance: NAD, awake alert Neck: no JVD Heart: irregular, murmur present Heart - other findings: rate controlled afib on telemetry Respiratory: CTAB, no wheezes, no rales, no ronchi Gastrointestinal: soft, non-tender, non-distended, normal bowel sounds Extremities: no edema Psychiatric: normal affect, normal behavior, A&O x 3 Hosp A/P - Plan #shortness of breath (resolved) #HFpEF -elevated BNP -Denied symptoms of lower respiratory tract infection -echo showing moderate/severe aortic stenosis, diastolic function could not be assessed -stopped home lasix; will DC on PRN lasix and can be followed up with stenographer secretary considering lasix can be harmful in context of patient's valulopathy #hypotonic hyponatremia #normal anion gap metabolic acidosis #adrenal insufficiency -low baseline cortisol, improper response to ACTH stimulation -started hydrocortisone 10mg qam, 5mg QPM 2 hours after dinner -regular diet #atrial fibrillation -on multaq and digoxin; no anticoagulation #R wrist fracture s/p ORIF -ortho onboard -s/p percutanous pin fixation and change of splint; no further intervention #hypotension -likely due to HF/valvulopathy/adrenal insufficiency -patient on midodrine at home; improved since increasing dosage to 5mg TID; now also started on hydrocortisone Disposition/PPx Full code GI PPx: pantoprazole DVT PPx: Lovenox ELOS: pending home hospice placement
[2020-03-25] MEDS ORDERED: Hydrocortisone 10 mg Tablet PO SCH (21:00)
[2020-03-25] MEDS: Atorvastatin Calcium 40 MG TAB PO SCH (21:57)
[2020-03-25] MEDS: Montelukast Sodium 10 mg Tablet PO SCH (21:57)
[2020-03-25] MEDS: Enoxaparin Sodium 30 MG/0.3 ML SYRINGE SC SCH (21:57)
[2020-03-25] MEDS: Acetaminophen 325 MG TAB PO PRN (21:59)
[2020-03-26] MEDS: Acetaminophen 325 MG TAB PO PRN (05:28)
[2020-03-26] MEDS: Levothyroxine Sodium 25 MCG TAB PO SCH (05:29)
[2020-03-26] MEDS: Mometasone 100 MCG/Formoterol 5 MCG 120 PUFF INHALER INH SCH (06:43)
[2020-03-26] MEDS: Aspirin 81 mg Enteric Coated Tablet PO SCH (08:51)
[2020-03-26] MEDS: Ascorbic Acid 500 mg Chewable Tablet PO SCH (08:51)
[2020-03-26] MEDS: Multivit, Therapeutic 1 TAB PO SCH (08:51)
[2020-03-26] MEDS: buPROPion 75 MG TAB PO SCH (08:52)
[2020-03-26] MEDS: Potassium Chloride 20 MEQ TAB PO SCH (08:52)
[2020-03-26] MEDS: Digoxin 0.125 MG TAB PO SCH (08:52)
[2020-03-26] MEDS: Ferrous Sulfate 325 MG TAB PO SCH (08:52)
[2020-03-26] MEDS: Midodrine HCl 5 MG TAB PO SCH ×2 (08:52→14:40)
[2020-03-26] MEDS: Dronedarone HCl 400 MG TAB PO SCH (08:52)
[2020-03-26] MEDS: Azelastine 137 MCG/Spray 30 ML NS SCH (08:53)
[2020-03-26] MEDS: Polyethylene Glycol 3350 17 GM Packet PO SCH (08:53)
[2020-03-26] MEDS ORDERED: Hydrocortisone 10 mg Tablet PO SCH (09:00)
--- NOTE | 2020-03-26 11:57 | PQF ---
CLINICAL DOCUMENTATION CLARIFICATION FORM: Dear Dr. Chacon Date / Time: Please exercise your independent, professional judgment in responding to the clarification form. Clinical indicators are provided on the bottom of this form for your review. Please check appropriate box(es): [ ] Sepsis due to: [ ] SIRS due to non-infectious process (please specify etiology) [ ] with organ dysfunction [ ] without organ dysfunction [ ] Localized infection without sepsis [ x ] Other diagnosis _no infection [ ] Unable to determine In addition, please specify: Present on Admission (POA): [ x ] Yes [ ] No [ ] Unable to determine For continuity of documentation, please document condition throughout progress notes and discharge summary. Thank You. To be completed by CDI/Coding staff for physician review: CLINICAL INDICATORS - SIGNS / SYMPTOMS / LABS / RESULTS AND LOCATION IN MR ER Record 03/20 VS: BP 98/62, pulse 71, Resp. 33., Temp 99.3, O2 sat 95 RA Doctor Notes: She is found to have a pneumonia on her left lung with change in her x-ray compared to prior. Pt met SIRS criteria with leukocytosis and infectious etiology identifies, sepsis alert was activated Diagnosis: Sepsis GI bleed, Healthcare associated pneumonia H&P 03/20 ([facility]) Chest x-ray showed worsening bilateral airspace disease, pneumonia vs edema. There is mild CHF as well. I/P: Healthcare-associated pneumonia LAB: 03/20 WBC 15.8 Band 18 03/21 ([facility]) SOB HFpEF Denied symptoms of lower resp. tract infection resolved with diuresis 03/25 ([facility]) Subjective: Overnight, hypotensive but asymptomatic again A/P: Adrenal insufficiency Low baseline cortisol, improper response to ACTH stimulation Hypotension Likely due to HF/valvulopathy/adrenal insufficiency RISK FACTORS / RESULTS AND LOCATION IN MR H&P 03/20 ( [facility]) 89 yo with hx of asthma, CAD, PAF, CHF with diastolic dysfunction. Admitted 02/19 for GLF with r open wrist fx and pelvic fx s/p ORIF and dc'd to Rehab then [facility] facility. Pt admitted for healthcare associated pneumonia. TREATMENTS / RESULTS AND LOCATION IN MR Order 03/20: Azactam 1gm FS now Order 03/20-03/21: IV Azactam 1 gm IV. Order 03/20-03/21: Vancomycin 1gm IV Order 03/20-03/21: NS IV 75mls/hr 03/21 ([facility]) stopped ABX 03/24 ([facility]) Subjective: Overnight, hypotensive but asymptomatic, received fluid bolus. Thank you, Elham Almanzar RN, BSN [email or web address] This is a permanent part of the Medical Record [facility]
--- NOTE | 2020-03-26 12:19 | PQF ---
CLINICAL DOCUMENTATION CLARIFICATION FORM: Dear Dr. Chacon Date: 03/26/2020 Please exercise your independent, professional judgment in responding to the clarification form. Clinical indicators are provided on the bottom of this form for your review. Please check appropriate box(es) to clarify if the following diagnosis has been ruled in our ruled out: Healthcare Associated Pneumonia [ ] Ruled in diagnosis [ ] Continue to treat [ ] Resolved [ x ] Ruled out diagnosis [ ] Improving [ ] Cannot rule out diagnosis [ ] Other diagnosis [ ] Unable to determine In addition, please specify: Present on Admission (POA): [ ] Yes [ ] No [ ] Unable to determine For continuity of documentation, please document condition throughout progress notes and discharge summary. Thank You. To be completed by CDI/Coding staff for physician review: CLINICAL INDICATORS - SIGNS / SYMPTOMS / LABS / RESULTS AND LOCATION IN MR ER Record 03/20 VS: BP 98/62, pulse 71, Resp. 33, Temp 99.3, O2 sat 95 RA Doctor Notes: She is found to have a pneumonia on her left lung with change in her x-ray compared to prior. H&P 03/20 ([facility]) Chest x-ray showed worsening bilateral airspace disease, pneumonia vs edema. There is mild CHF as well. I/P: Healthcare-associated pneumonia LAB: 03/20 [facility] 15.8 Band [facility] SOB HFpEF Denied symptoms of lower resp. tract infection resolved with diuresis RISK FACTORS / RESULTS AND LOCATION IN MR H&P 03/20 ( [facility]) 89 yo with hx of asthma, CAD, PAF, CHF with diastolic dysfunction. Admitted 02/19 for GLF with r open wrist fx and pelvic fx s/p ORIF and dc'd to Rehab then shelter facility. Pt admitted for healthcare associated pneumonia. TREATMENTS / RESULTS AND LOCATION IN MR Order 03/20: Azactam 1gm FS now Order 03/20-03/21: IV Azactam 1 gm IV. Order 03/20-03/21: Vancomycin 1gm IV 03/21 ([facility]) stopped ABX Thank you, Elham Almanzar, RN, BSN [email or web address] This is a permanent part of the Medical Record [facility]
[2020-03-26 12:22] VITALS: BP 94/52; TEMP 98
--- NOTE | 2020-03-26 14:08 | PDOC.PALCO ---
Palliative Care Consult - Allergies Allergies/Adverse Reactions: Allergies Allergy/AdvReac Type Severity Reaction Status Date / Time Penicillins Allergy Unknown Verified 03/20/20 16:56 amoxicillin Allergy Verified 03/20/20 16:56 cephalexin Allergy Verified 03/20/20 16:56 clavulanic acid Allergy Verified 03/20/20 16:56 [From Augmentin] gatifloxacin Allergy Verified 03/20/20 16:56 Sulfa (Sulfonamide Allergy Verified 03/20/20 16:56 Antibiotics) sulfamethoxazole Allergy Verified 03/20/20 16:56 trimethoprim [From Bactrim] Allergy Verified 03/20/20 16:56 - Objective Vital Signs: Vital Signs - Most Recent Temp Pulse Resp BP Pulse Ox 98.0 F 60 16 94/52 L 99 03/26/20 12:00 03/26/20 12:00 03/26/20 12:00 03/26/20 12:00 03/26/20 12:00 - Plan/Recommendations Plan: [] minutes spent on this encounter with >50% of the time in counseling and coordination of care. Thank you for this very appropriate consult.
--- NOTE | 2020-03-27 02:06 | DIS ---
DATE OF ADMISSION: 03/20/2020 DATE OF DISCHARGE: 03/26/2020 HOSPITAL COURSE: Ms. Leal is an 89-year-old female with medical history of coronary artery disease status post CABG, PVD, paroxysmal atrial fibrillation (no anticoagulation), and CHF with preserved ejection fraction, [id number]-ph-ooysrx aortic stenosis, who presented with shortness of breath. She was diagnosed with decompensated heart failure and improved promptly after gentle diuresis. The patient had a fall a few weeks ago and had right wrist fracture status post ORIF. She was evaluated by the Orthopedic Surgery, which determined that she had hardware failure, so she underwent percutaneous pin fixation and fit with a new splint. In addition to that she had multiple episodes of hypotension that were asymptomatic throughout her inpatient stay. Her midodrine dose was increased, but she remained hypotensive. She was diagnosed with adrenal insufficiency and was started on hydrocortisone. PHYSICAL EXAMINATION: VITAL SIGNS: Blood pressure 94/52, pulse 60, respiratory rate 16, oxygen saturation 99% on room air, and temperature 98. GENERAL: Lying comfortably in bed. Awake and alert. Emaciated. HEENT: Normocephalic and atraumatic. CARDIAC: Irregular rhythm. Rate controlled atrial fibrillation on telemetry. RESPIRATORY: Clear to auscultation bilaterally. No wheezing, rales or rhonchi. GI: Soft, nontender, and nondistended. Normal bowel sounds. EXTREMITIES: No lower extremity edema. Right upper extremity in splint. PSYCHIATRIC: Flat affect. Normal behavior. Alert and oriented x3. MEDICATION LIST: New medications; 1. Hydrocortisone 5 mg q.p.m. 2. Hydrocortisone 10 mg q.a.m. Modified medications, midodrine was changed from 2.5 mg to 5 mg. Discontinued medications, no discontinued medications. Continued medications; 1. Tylenol. 2. Albuterol. 3. Aspirin. 4. Atorvastatin. 5. Dymista. 6. Bisacodyl p.r.n. 7. Bupropion. 8. Digoxin. 9. Dronedarone. 10. Ferrous sulfate. 11. Advair. 12. Synthroid. 13. Melatonin. 14. Singulair. 15. Multivitamin. 16. Pantoprazole. 17. Polyethylene glycol. 18. Potassium. 19. Tramadol. During her inpatient stay, the patient requested to be evaluated by the Palliative Care team after discussion with her friend and family members. The discussion with the Palliative Care team yielded the decision to transition into hospice care. Job ID: [id number]
--- NOTE | 2020-03-30 12:12 | PQF ---
CLINICAL DOCUMENTATION CLARIFICATION FORM: Dear : Lamine Chacon Date / Time: 03/30/2020 Please exercise your independent, professional judgment in responding to the clarification form. Clinical indicators are provided on the bottom of this form for your review Please check appropriate box(es): Conflicting documentation was noted in the Medical Record; please clarify if patient is being treated/monitored for: [x ] Decompensated diastolic heart failure [ ] Chronic diastolic heart failure [ ] Other diagnosis [ ] Unable to determine In addition, please specify: Present on Admission (POA): [ x] Yes [ ] No [ ] Unable to determine To be completed by CDI/Coding staff for physician review: Present Clinical Indicators - Signs / Symptoms / Labs Results and Location in Medical Record [ x ] She was diagnosed with decompensated heart failure and improved promptly after gentle diuresis Discharge summary [ x ] Chronic diastolic heart failure Query response 03/24 by Lamine Chacon MD [ x ] BNP is 1305.2 on 03/20 Laboratory [ x ] HFPEF, elevated BNP. Echo showing moderate/severe aortic stenosis, diastolic function could not be assessed Progress note 03/25 by Lamine Chacon MD Present Risk Factors Results and Location in Medical Record [ x ] Aortic stenosis, atrial fibrillation Progress note 03/25 by Lamine Chacon MD Present Treatments Results and Location in Medical Record [ x ] Transthoracic echocardiography 03/22 by Danilo Leach MD Echocardiogram Report [ x ] Lasix 40 mg 03/21 Medications CDS/Slab Grinder Signature: [email or web address] Phone #: Date/ Time: 03/30/2020 This is a permanent part of the Medical Record [facility]
--- NOTE | 2020-04-01 15:53 | EKG ---
Test Reason : ABNORMAL LABS Blood Pressure : / mmHG Vent. Rate : 076 BPM Atrial Rate : 052 BPM P-R Int : 000 ms QRS Dur : 106 ms QT Int : 358 ms P-R-T Axes : 000 -45 148 degrees QTc Int : 402 ms Atrial fibrillation Left anterior fascicular block Nonspecific ST and T wave abnormality Abnormal ECG Confirmed by NOLAN MONTELONGO, GITA ([id number]), managing editor ELIZABETH SIMONS ([id number]) on 04/01/2020 3:53:11 PM Referred By: ISELA Confirmed By:GITA FRANCISCO MD
== END 2020-03-26 14:43 | disposition hospice, inpatient (51) | DRG 292 ==
LOC: ERS 10:47 → 2NO 14:30 → ONC 03-25 20:25
PROVIDERS: ADMIT Internal Medicine; ATTEND Internal Medicine
PROC: 2W0CX1Z Change Splint on Right Lower Arm (ICD-10-PCS; principal; 2020-03-22)
DX: I11.0 Hypertensive heart disease with heart failure (principal); T84.298A Other mechanical complication of internal fixation device of other bones, initial encounter; E27.40 Unspecified adrenocortical insufficiency; E87.1 Hypo-osmolality and hyponatremia; E87.2 Acidosis; Z66 Do not resuscitate; Z51.5 Encounter for palliative care; I50.33 Acute on chronic diastolic (congestive) heart failure; I25.10 Atherosclerotic heart disease of native coronary artery without angina pectoris; M81.0 Age-related osteoporosis without current pathological fracture; J45.909 Unspecified asthma, uncomplicated; I73.9 Peripheral vascular disease, unspecified; I48.0 Paroxysmal atrial fibrillation; E83.52 Hypercalcemia; E03.9 Hypothyroidism, unspecified; I35.0 Nonrheumatic aortic (valve) stenosis; K21.9 Gastro-esophageal reflux disease without esophagitis; I95.9 Hypotension, unspecified; Z95.1 Presence of aortocoronary bypass graft; Z79.01 Long term (current) use of anticoagulants; Z86.73 Personal history of transient ischemic attack (TIA), and cerebral infarction without residual deficits; Z79.82 Long term (current) use of aspirin; Z88.0 Allergy status to penicillin; Z88.1 Allergy status to other antibiotic agents; Y83.1 Surgical operation with implant of artificial internal device as the cause of abnormal reaction of the patient, or of later complication, without mention of misadventure at the time of the procedure
CPT/HCPCS: 36415; 36600; 71045; 80048; 80053; 80162; 80202; 80400; 81003; 81015; 82274; 82553; 83605; 83735; 83880; 83935; 84100; 84134; 84145; 84300; 84443; 84484; 85025; 87040; 87086; 93005; 93306; 96361; 96365; 96367; J0834; J1650; J3370; J3490; J7030